=== PATIENT | male | born 1960 | race Hispanic/Latino ===

== ENCOUNTER 2019-01-22 20:34 | Inpatient (IN) | payer BC ==
--- NOTE | 2019-01-22 22:31 | ED PDOC ---
Lower Extremity Pain/Injury Time Seen by Provider: 01/22/19 21:43 Chief Complaint (Nursing): Lower Extremity Problem/Injury Chief Complaint (Provider): Lower Extremity Problem/Injury History Per: Patient History/Exam Limitations: no limitations Onset/Duration Of Symptoms: Days (x5 weeks) Current Symptoms Are (Timing): Still Present Additional Complaint(s): 58 year old male with a history of htn, dm, and high cholesterol presents to the ED with left great toe pain onset 12/16/18. Patient sustained a fracture and partial amputation of left great toe in November. At the time, he was treated at [facility] and followed up with Dr. Martino, podiatry, and was given a ntibiotics. When he followed up, there was concern for persistent infection so he was started on another course of antibiotics. Another repeat follow-up demonstrated worsening infection, prompting ED visit for further evaluation and possible admission. Patient denies any fever, chills or body aches. He had some mild diarrhea which may be caused by the antibiotics. PMD: in [place] Past Medical History Reviewed: Historical Data, Nursing Documentation, Vital Signs Vital Signs: Last Vital Signs Temp 98.1 F 01/22/19 21:11 Pulse 92 H 01/22/19 21:11 Resp 16 01/22/19 21:11 BP 136/83 01/22/19 21:11 Pulse Ox 97 01/22/19 21:11 - Medical History PMH: Diabetes, HTN, Hypercholesterolemia - Surgical History Other surgeries: cataract surgery - Family History Family History: States: No Known Family Hx - Social History Current smoker - smoking cessation education provided: No Ex-Smoker (has not smoked in the last 12 months): No - Allergies Allergies/Adverse Reactions: Allergies Allergy/AdvReac Type Severity Reaction Status Date / Time Penicillins Allergy RASH Verified 01/22/19 21:11 Review of Systems ROS Statement: Except As Marked, All Systems Reviewed And Found Negative Constitutional: Negative for: Fever, Chills Gastrointestinal: Positive for: Other (left great toe pain) Physical Exam - Reviewed Nursing Documentation Reviewed: Yes Vital Signs Reviewed: Yes - Physical Exam Appears: Positive for: Non-toxic, No Acute Distress Head Exam: Positive for: ATRAUMATIC, NORMOCEPHALIC Skin: Positive for: Warm, Dry Eye Exam: Positive for: EOMI, PERRL ENT: Negative for: Pharyngeal Erythema, Tonsillar Exudate Neck: Positive for: Painless ROM, Supple Cardiovascular/Chest: Positive for: Regular Rate, Rhythm. Negative for: Murmur Respiratory: Positive for: Normal Breath Sounds. Negative for: Respiratory Distress Gastrointestinal/Abdominal: Positive for: Soft. Negative for: Tenderness Back: Positive for: Normal Inspection. Negative for: Muscle Spasm Extremity: Positive for: Other (toe exam deferred to violin restorer who was at beside on arrival ) Lymphatic: Negative for: Adenopathy Neurologic/Psych: Positive for: Alert. Negative for: Motor/Sensory Deficits - Laboratory Results Result Diagrams: 01/22/19 22:45 01/22/19 22:45 - ECG O2 Sat by Pulse Oximetry: 97 (RA) Pulse Ox Interpretation: Normal Medical Decision Making Medical Decision Making: Time: 2156 Impression: left great toe with fracture and persistent infection Plan: --Type and screen --VBG --EKG --CMP --CBC --ESR --PTT --PT/INR --CXR --Blood culture --Glucose --left foot XR --Patient to be hospitalized for IV antibiotcs. Case discussed with Dr. Titus, medical service, for admission --- Scribe Attestation: Documented by Mari Ray, acting as a scribe for Lupis Maria MD. Provider Scribe Attestation: All medical record entries made by the Scribe were at my direction and personally dictated by me. I have reviewed the chart and agree that the record accurately reflects my personal performance of the history, physical exam, medical decision making, and the department course for this patient. I have also personally directed, reviewed, and agree with the discharge instructions and disposition. Disposition - Clinical Impression Clinical Impression: Toe infection Counseled Patient/Family Regarding: Studies Performed, Diagnosis - Disposition Disposition Time: 22:00 Condition: FAIR - Pt Status Changed To: Hospital Disposition Of: Inpatient - Admit Certification Admit to Inpatient:: After my assessment, the patient will require hospitalization for at least two midnights. This is because of the severity of symptoms shown, intensity of services needed, and/or the medical risk in this patient being treated as an outpatient. - POA Present On Arrival: Falls Or Trauma
[2019-01-22 22:39] LABS: VENOUS BLOOD GAS BASE EXCESS -0.5 mmol/L (0.0-2.0); VENOUS BLOOD GAS PCO2 39 mmHg (40-60); VENOUS BLOOD GAS PO2 50 mm/Hg (30-55)
[2019-01-22] MEDS ORDERED: Vancomycin 1 g Inj ONE (22:52)
[2019-01-22 22:59] LABS: BASO # 0.1 K/uL (0.0-0.2); EOS # 0.2 K/uL (0.0-0.7); HEMOGLOBIN 15.9 g/dL (12.0-18.0); LYMPH # 1.3 K/uL (1.0-4.3); LYMPH % 22.4 % (20.0-40.0); MEAN CELL VOLUME 90.3 fl (80.0-94.0); MEAN CORPUSCULAR HEMOGLOBIN 30.4 pg (27.0-31.0); MEAN CORPUSCULAR HGB CONC 33.6 g/dL (33.0-37.0); MEAN PLATELET VOLUME 7.7 fl (7.2-11.7); MONO # 0.5 K/uL (0.0-0.8); MONO % 8.2 % (0.0-10.0); NEUT # 3.8 K/uL (1.8-7.0); NEUT % 65.4 % (50.0-75.0); NRBC % 0.2 % (0.0-0.0); RBC 5.23 Mil/uL (4.40-5.90); RED CELL DISTRIBUTION WIDTH 12.5 % (11.5-14.5); WHITE BLOOD COUNT 5.8 K/uL (4.8-10.8)
[2019-01-22 23:04] LABS: INR 1.1; PROTHROMBIN TIME 12.1 Seconds (9.8-13.1)
[2019-01-22 23:06] LABS: PARTIAL THROMBOPLASTIN TIME 36.6 Seconds (25.6-37.1)
[2019-01-22 23:18] LABS: ALB/GLOB RATIO 1.4 (1.0-2.1); ALBUMIN 4.5 g/dL (3.5-5.0); ALT/SGPT 70 U/L (21-72); AST/SGOT 35 U/L (17-59); BLOOD UREA NITROGEN 24 mg/dl (9-20); CALCIUM 9.7 mg/dL (8.4-10.2); GFR NON-AFRICAN AMERICAN > 60
[2019-01-23] MEDS ORDERED: Dextrose 5%/0.45% NS 1,000 ML IV SCH (06:15)
--- NOTE | 2019-01-23 06:33 | CP.PCM.CON ---
History of Present Illness - History of Present Illness History of Present Illness: Podiatry consult note for Dr. Martino, 58 y/o male patient with PMHx of Diabetes and HTN seen and evaluated in the ED with left great toe pain onset 12/16/18. Patient sustained a fracture and partial amputation of left great toe in November. At the time, he was treated at [facility] and followed up with Dr. Martino, podiatry, and was given antibiotics. When he followed up, there was concern for persistent infection so he was started on a nother course of antibiotics. Patient has an outpatient MRI completed and was sent to the ED by Dr. Martino for further evaluation and possible admission. Patient denies any fever, chills or body aches. He had some mild diarrhea which may be caused by the antibiotics. PMD: in [place] Review of Systems - Review of Systems All systems: reviewed and no additional remarkable complaints except Review of Systems: As per HPI Past Patient History - Past Medical History & Family History Past Medical History?: Yes - Past Social History Smoking Status: Never Smoked - CARDIAC Hx Cardiac Disorders: Yes Hx Hypercholesterolemia: Yes Hx Hypertension: Yes - PULMONARY Hx Respiratory Disorders: No - NEUROLOGICAL Hx Neurological Disorder: No - HEENT Hx HEENT Problems: Yes Other/Comment: eyeglasses - RENAL Hx Chronic Kidney Disease: No - ENDOCRINE/METABOLIC Hx Endocrine Disorders: Yes Hx Diabetes Mellitus Type 2: Yes - HEMATOLOGICAL/ONCOLOGICAL Hx Blood Disorders: No Hx AIDS: No Hx Human Immunodeficiency Virus (HIV): No - INTEGUMENTARY Hx Dermatological Problems: No - MUSCULOSKELETAL/RHEUMATOLOGICAL Hx Musculoskeletal Disorders: No Hx Falls: No - GASTROINTESTINAL Hx Gastrointestinal Disorders: No - GENITOURINARY/GYNECOLOGICAL Hx Genitourinary Disorders: No - PSYCHIATRIC Hx Psychophysiologic Disorder: No Hx Substance Use: No - SURGICAL HISTORY Hx Surgeries: Yes Hx Cataract Extraction: Yes Other/Comment: sgy to great toe - ANESTHESIA Hx Anesthesia: No Hx Anesthesia Reactions: No Meds Allergies/Adverse Reactions: Allergies Allergy/AdvReac Type Severity Reaction Status Date / Time Penicillins Allergy RASH Verified 01/22/19 21:11 - Medications Medications: Current Medications Vancomycin HCl 1 gm/ Sodium (Chloride) 250 mls @ 166.667 mls/hr IVPB Q12 [facility]; Protocol Dextrose/Sodium Chloride (Dextrose 5%/0.45% Ns 1000 Ml) 1,000 mls @ 40 mls/hr IV .Q24H [facility] Stop: 01/24/19 06:13 Last Admin: 01/23/19 06:26 Dose: 40 mls/hr Insulin Human Regular (Humulin R) 0 units SC ACHS [facility]; Protocol Lisinopril (Zestril) 20 mg PO DAILY [facility] Terazosin HCl (Hytrin) 1 mg PO DAILY [facility] Physical Exam - Constitutional Appears: Well, Non-toxic, No Acute Distress - Head Exam Head Exam: ATRAUMATIC, NORMOCEPHALIC - Extremities Exam Additional comments: Left Lower Extremity Exam VASC: DP and PT 1/4 palpable, CFT less than 3 seconds X 5, TG warm to warm within normal limits, edema noted to the left hallux NEURO: epicritic and protective sensations intact DERM: erythema, edema and mild duskiness noted of the left hallux, no open wounds, no nail noted, no clinical signs of infection, no malodor, no drainage ORTHO: minimal pain on palpation of the left hallux - Neurological Exam Neurological exam: Alert, Oriented x3 - Psychiatric Exam Psychiatric exam: Normal Affect, Normal Mood Results - Vital Signs Recent Vital Signs: Last Vital Signs Temp 97.3 F L 01/23/19 00:20 Pulse 81 01/23/19 00:20 Resp 19 01/23/19 00:20 BP 116/74 01/23/19 00:20 Pulse Ox 95 01/23/19 00:20 - Labs Result Diagrams: 01/22/19 22:45 01/22/19 22:45 Labs: Laboratory Results - last 24 hr 01/22/19 01/22/19 01/22/19 22:35 22:45 22:45 WBC 5.8 RBC 5.23 Hgb 15.9 Hct 47.2 MCV 90.3 MCH 30.4 MCHC 33.6 RDW 12.5 Plt Count 252 MPV 7.7 Neut % (Auto) 65.4 Lymph % (Auto) 22.4 [place] % (Auto) 8.2 Eos % (Auto) 3.0 Baso % (Auto) 1.0 Neut # (Auto) 3.8 Lymph # (Auto) 1.3 [place] # (Auto) 0.5 Eos # (Auto) 0.2 Baso # (Auto) 0.1 ESR 8 PT INR APTT pO2 50 VBG pH 7.40 VBG pCO2 39 L VBG HCO3 24.2 VBG Total CO2 25.4 VBG O2 Sat (Calc) 90.3 H VBG Base Excess -0.5 L VBG Potassium 3.7 Sodium 136.0 140 Chloride 105.0 100 Glucose 164 H Lactate 1.6 FiO2 21.0 Potassium 3.7 Carbon Dioxide 24 Anion Gap 20 BUN 24 H Creatinine 1.0 Est GFR ( Amer) > 60 Est GFR (Non-Af Amer) > 60 POC Glucose (mg/dL) Random Glucose 158 H Calcium 9.7 Total Bilirubin 0.5 AST 35 ALT 70 Alkaline Phosphatase 48 Total Protein 7.8 Albumin 4.5 Globulin 3.3 Albumin/Globulin Ratio 1.4 Venous Blood Potassium 3.7 Blood Type Antibody Screen BBK History Checked 01/22/19 01/22/19 01/22/19 22:45 22:45 23:23 WBC RBC Hgb Hct MCV MCH MCHC RDW Plt Count MPV Neut % (Auto) Lymph % (Auto) [place] % (Auto) Eos % (Auto) Baso % (Auto) Neut # (Auto) Lymph # (Auto) [place] # (Auto) Eos # (Auto) Baso # (Auto) ESR PT 12.1 INR 1.1 APTT 36.6 pO2 VBG pH VBG pCO2 VBG HCO3 VBG Total CO2 VBG O2 Sat (Calc) VBG Base Excess VBG Potassium Sodium Chloride Glucose Lactate FiO2 Potassium Carbon Dioxide Anion Gap BUN Creatinine Est GFR ( Amer) Est GFR (Non-Af Amer) POC Glucose (mg/dL) 168 H Random Glucose Calcium Total Bilirubin AST ALT Alkaline Phosphatase Total Protein Albumin Globulin Albumin/Globulin Ratio Venous Blood Potassium Blood Type A POSITIVE Antibody Screen Negative BBK History Checked No verified bt 01/23/19 06:15 WBC RBC Hgb Hct MCV MCH MCHC RDW Plt Count MPV Neut % (Auto) Lymph % (Auto) [place] % (Auto) Eos % (Auto) Baso % (Auto) Neut # (Auto) Lymph # (Auto) [place] # (Auto) Eos # (Auto) Baso # (Auto) ESR PT INR APTT pO2 VBG pH VBG pCO2 VBG HCO3 VBG Total CO2 VBG O2 Sat (Calc) VBG Base Excess VBG Potassium Sodium Chloride Glucose Lactate FiO2 Potassium Carbon Dioxide Anion Gap BUN Creatinine Est GFR ( Amer) Est GFR (Non-Af Amer) POC Glucose (mg/dL) 124 H Random Glucose Calcium Total Bilirubin AST ALT Alkaline Phosphatase Total Protein Albumin Globulin Albumin/Globulin Ratio Venous Blood Potassium Blood Type Antibody Screen BBK History Checked Assessment & Plan - Assessment and Plan (Free Text) Assessment: 58 y/o male patient seen and evaluated in the ED and admitted for IV Abx, along with possible bone biopsy of the left hallux distal phalanx Plan: Patient was seen and evaluated Plan was discussed with Dr. Martino Chart, labs and vital were reviewed- no WBC, afebrile ESR- 8 Left foot X-ray: destructive changes-osteomyelitis distal phalanx left great toe with surrounding soft tissue Outpatient MRI: neuro-arthropathy vs. osteomyelitis changes were noted Patient explained that he will be admitted for IV Abx Patient started on Vancomycin Ordered ID consult with Dr. Nogueira Patient plan was thoroughly discussed with Dr. Nogueira Patient was scheduled for bone biospy as a definitive way to determine if patient has osteomyelitis Patient wound was dressed with betadine, DSD Patient was to be NPO past midnight Patient and spouse demonstrated verbal understanding - Date & Time Date: 01/24/19 Time: 07:25
[2019-01-23] MEDS: Insulin Regular 100 units/ml SC SCH ×4 (08:13→21:30)
--- NOTE | 2019-01-23 08:37 | CP.PCM.HP ---
History of Present Illness - History of Present Illness History of Present Illness: 58 YR OLD MALE ADMITTED WITH L GREAT TOE INFECTION--SCHEDULED FOR PODIATRY SURGERY.HX OF TRAUMA WITH FRACTURE AND PERSISTENT INFECTION OF L GREAT TOE SINCE LATE NOVEMBER 2018.DENIES PAIN OR FEVER.HAS BEEN ON MULTIPLE ANTIBIOTICS TO NO A VAIL HX OF DM,HYPERTENSION AND HYPERLIPIDEMIA Present on Admission - Present on Admission Any Indicators Present on Admission: No Past Patient History - Past Medical History & Family History Past Medical History?: Yes - Past Social History Smoking Status: Never Smoked - CARDIAC Hx Cardiac Disorders: Yes Hx Hypercholesterolemia: Yes Hx Hypertension: Yes - PULMONARY Hx Respiratory Disorders: No - NEUROLOGICAL Hx Neurological Disorder: No - HEENT Hx HEENT Problems: Yes Other/Comment: eyeglasses - RENAL Hx Chronic Kidney Disease: No - ENDOCRINE/METABOLIC Hx Endocrine Disorders: Yes Hx Diabetes Mellitus Type 2: Yes - HEMATOLOGICAL/ONCOLOGICAL Hx Blood Disorders: No Hx AIDS: No Hx Human Immunodeficiency Virus (HIV): No - INTEGUMENTARY Hx Dermatological Problems: No - MUSCULOSKELETAL/RHEUMATOLOGICAL Hx Musculoskeletal Disorders: No Hx Falls: No - GASTROINTESTINAL Hx Gastrointestinal Disorders: No - GENITOURINARY/GYNECOLOGICAL Hx Genitourinary Disorders: No - PSYCHIATRIC Hx Psychophysiologic Disorder: No Hx Substance Use: No - SURGICAL HISTORY Hx Surgeries: Yes Hx Cataract Extraction: Yes Other/Comment: sgy to great toe - ANESTHESIA Hx Anesthesia: No Hx Anesthesia Reactions: No Meds Allergies/Adverse Reactions: Allergies Allergy/AdvReac Type Severity Reaction Status Date / Time Penicillins Allergy RASH Verified 01/22/19 21:11 Physical Exam - Constitutional Appears: Well - Head Exam Head Exam: ATRAUMATIC, NORMAL INSPECTION, NORMOCEPHALIC - Eye Exam Eye Exam: EOMI, Normal appearance, PERRL Pupil Exam: NORMAL ACCOMODATION, PERRL - ENT Exam ENT Exam: Mucous Membranes Moist, Normal Exam - Neck Exam Neck exam: Positive for: Normal Inspection - Respiratory Exam Respiratory Exam: Clear to Auscultation Bilateral, NORMAL BREATHING PATTERN - Cardiovascular Exam Cardiovascular Exam: REGULAR RHYTHM - GI/Abdominal Exam GI & Abdominal Exam: Normal Bowel Sounds, Soft. absent: Tenderness - Rectal Exam Rectal Exam: NORMAL INSPECTION - Extremities Exam Additional comments: L GREAT TOE REDNESS AND SWELLING - Back Exam Back exam: NORMAL INSPECTION - Neurological Exam Neurological exam: Alert, CN II-XII Intact, Normal Gait, Oriented x3, Reflexes Normal - Psychiatric Exam Psychiatric exam: Normal Affect, Normal Mood - Skin Skin Exam: Dry, Intact, Normal Color, Warm Results - Vital Signs Recent Vital Signs: Last Vital Signs Temp 97.6 F 01/23/19 08:10 Pulse 85 01/23/19 08:10 Resp 19 01/23/19 08:10 BP 111/69 01/23/19 08:10 Pulse Ox 95 01/23/19 08:10 - Labs Result Diagrams: 01/22/19 22:45 01/22/19 22:45 Labs: Laboratory Results - last 24 hr 01/22/19 01/22/19 01/22/19 22:35 22:45 22:45 WBC 5.8 RBC 5.23 Hgb 15.9 Hct 47.2 MCV 90.3 MCH 30.4 MCHC 33.6 RDW 12.5 Plt Count 252 MPV 7.7 Neut % (Auto) 65.4 Lymph % (Auto) 22.4 [place] % (Auto) 8.2 Eos % (Auto) 3.0 Baso % (Auto) 1.0 Neut # (Auto) 3.8 Lymph # (Auto) 1.3 [place] # (Auto) 0.5 Eos # (Auto) 0.2 Baso # (Auto) 0.1 ESR 8 PT INR APTT pO2 50 VBG pH 7.40 VBG pCO2 39 L VBG HCO3 24.2 VBG Total CO2 25.4 VBG O2 Sat (Calc) 90.3 H VBG Base Excess -0.5 L VBG Potassium 3.7 Sodium 136.0 140 Chloride 105.0 100 Glucose 164 H Lactate 1.6 FiO2 21.0 Potassium 3.7 Carbon Dioxide 24 Anion Gap 20 BUN 24 H Creatinine 1.0 Est GFR ( Amer) > 60 Est GFR (Non-Af Amer) > 60 POC Glucose (mg/dL) Random Glucose 158 H Calcium 9.7 Total Bilirubin 0.5 AST 35 ALT 70 Alkaline Phosphatase 48 Total Protein 7.8 Albumin 4.5 Globulin 3.3 Albumin/Globulin Ratio 1.4 Venous Blood Potassium 3.7 Blood Type Antibody Screen BBK History Checked 01/22/19 01/22/19 01/22/19 22:45 22:45 23:23 WBC RBC Hgb Hct MCV MCH MCHC RDW Plt Count MPV Neut % (Auto) Lymph % (Auto) [place] % (Auto) Eos % (Auto) Baso % (Auto) Neut # (Auto) Lymph # (Auto) [place] # (Auto) Eos # (Auto) Baso # (Auto) ESR PT 12.1 INR 1.1 APTT 36.6 pO2 VBG pH VBG pCO2 VBG HCO3 VBG Total CO2 VBG O2 Sat (Calc) VBG Base Excess VBG Potassium Sodium Chloride Glucose Lactate FiO2 Potassium Carbon Dioxide Anion Gap BUN Creatinine Est GFR ( Amer) Est GFR (Non-Af Amer) POC Glucose (mg/dL) 168 H Random Glucose Calcium Total Bilirubin AST ALT Alkaline Phosphatase Total Protein Albumin Globulin Albumin/Globulin Ratio Venous Blood Potassium Blood Type A POSITIVE Antibody Screen Negative BBK History Checked No verified bt 01/23/19 06:15 WBC RBC Hgb Hct MCV MCH MCHC RDW Plt Count MPV Neut % (Auto) Lymph % (Auto) [place] % (Auto) Eos % (Auto) Baso % (Auto) Neut # (Auto) Lymph # (Auto) [place] # (Auto) Eos # (Auto) Baso # (Auto) ESR PT INR APTT pO2 VBG pH VBG pCO2 VBG HCO3 VBG Total CO2 VBG O2 Sat (Calc) VBG Base Excess VBG Potassium Sodium Chloride Glucose Lactate FiO2 Potassium Carbon Dioxide Anion Gap BUN Creatinine Est GFR ( Amer) Est GFR (Non-Af Amer) POC Glucose (mg/dL) 124 H Random Glucose Calcium Total Bilirubin AST ALT Alkaline Phosphatase Total Protein Albumin Globulin Albumin/Globulin Ratio Venous Blood Potassium Blood Type Antibody Screen BBK History Checked Assessment & Plan - Assessment and Plan (Free Text) Assessment: CELLULITIS OF L GREAT TOE FRACTURE OF L GREAT TOE R/O OSTEOMYELITIS DM HTN HYPERLIPIDEMIA Plan: MEDICALLY CLEARED FOR SURGERI ID EVALUATION IV ANTIBIOTICS ANALGESICS FOR PAIN - Date & Time Date: 01/23/19 Time: 08:40
--- NOTE | 2019-01-23 09:14 | CP.PCM.PN ---
<Irena Ray - Last Filed: 01/23/19 14:42> Objective - Vital Signs/Intake and Output Vital Signs (last 24 hours): Temp Pulse Resp BP Pulse Ox 97.6 F 85 19 135/79 95 01/23/19 08:10 01/23/19 08:10 01/23/19 08:10 01/23/19 10:30 01/23/19 08:10 Intake and Output: 01/23/19 01/23/19 06:59 18:59 Intake Total 300 Balance 300 - Medications Medications: Current Medications Vancomycin HCl 1 gm/ Sodium (Chloride) 250 mls @ 166.667 mls/hr IVPB Q12 [facility]; Protocol Last Admin: 01/23/19 08:16 Dose: 166.667 mls/hr Dextrose/Sodium Chloride (Dextrose 5%/0.45% Ns 1000 Ml) 1,000 mls @ 40 mls/hr IV .Q24H [facility] Stop: 01/24/19 06:13 Last Admin: 01/23/19 06:26 Dose: 40 mls/hr Insulin Human Regular (Humulin R) 0 units SC ACHS [facility]; Protocol Last Admin: 01/23/19 13:08 Dose: Not Given Lisinopril (Zestril) 20 mg PO DAILY [facility] Last Admin: 01/23/19 10:30 Dose: 20 mg Terazosin HCl (Hytrin) 1 mg PO DAILY@2100 [facility] - Labs Labs: 01/22/19 22:45 01/22/19 22:45 PT 12.1 Seconds (9.8-13.1) 01/22/19 22:45 INR 1.1 01/22/19 22:45 APTT 36.6 Seconds (25.6-37.1) 01/22/19 22:45 Assessment and Plan - Assessment and Plan (Free Text) Plan: Patient seen s/p left hallux bone biopsy in the OR 2 separate left hallux fracture site bone biopsy taken Wound cultures taken and ordered Site dressed with betadine application and saline soaked gauze with kerlix CAM boot ordered; patient to ambulate in CAM boot as tolerated. f/u on left foot x-rays <Katei Barber - Last Filed: 01/24/19 07:28> Subjective - Date & Time of Evaluation Date of Evaluation: 01/24/19 Time of Evaluation: 07:25 - Subjective Subjective: Podiatry progress note for Dr. Martino, 58 y/o male patient was seen and evaluated at bedside. Patient aware his surgery is today at 1:00 PM for bone biopsy. Patient NPO was confirmed. Patient denies any pain or overnight events. Patient denies F/N/V/SOB/CP Objective - Vital Signs/Intake and Output Vital Signs (last 24 hours): Temp Pulse Resp BP Pulse Ox 97.6 F 85 19 111/69 95 01/23/19 08:10 01/23/19 08:10 01/23/19 08:10 01/23/19 08:10 01/23/19 08:10 - Medications Medications: Current Medications Vancomycin HCl 1 gm/ Sodium (Chloride) 250 mls @ 166.667 mls/hr IVPB Q12 [facility]; Protocol Last Admin: 01/23/19 08:16 Dose: 166.667 mls/hr Dextrose/Sodium Chloride (Dextrose 5%/0.45% Ns 1000 Ml) 1,000 mls @ 40 mls/hr IV .Q24H [facility] Stop: 01/24/19 06:13 Last Admin: 01/23/19 06:26 Dose: 40 mls/hr Insulin Human Regular (Humulin R) 0 units SC ACHS [facility]; Protocol Last Admin: 01/23/19 08:13 Dose: Not Given Lisinopril (Zestril) 20 mg PO DAILY [facility] Last Admin: 01/23/19 08:19 Dose: Not Given Terazosin HCl (Hytrin) 1 mg PO DAILY [facility] Last Admin: 01/23/19 08:18 Dose: Not Given - Labs Labs: 01/22/19 22:45 01/22/19 22:45 PT 12.1 Seconds (9.8-13.1) 01/22/19 22:45 INR 1.1 01/22/19 22:45 APTT 36.6 Seconds (25.6-37.1) 01/22/19 22:45 - Constitutional Appears: Well, Non-toxic, No Acute Distress - Head Exam Head Exam: ATRAUMATIC, NORMOCEPHALIC - Extremities Exam Additional comments: Left Lower Extremity Exam VASC: DP and PT 1/4 palpable, CFT less than 3 seconds X 5, TG warm to warm within normal limits, edema noted to the left hallux NEURO: epicritic and protective sensations intact DERM: erythema, edema and mild duskiness noted of the left hallux, no open wounds, no nail noted, no clinical signs of infection, no malodor, no drainage ORTHO: minimal pain on palpation of the left hallux - Neurological Exam Neurological Exam: Alert, Awake, Oriented x3 - Psychiatric Exam Psychiatric exam: Normal Affect, Normal Mood Assessment and Plan - Assessment and Plan (Free Text) Assessment: 58 y/o male patient seen and evaluated in the ED and admitted for IV Abx, along with possible bone biopsy of the left hallux distal phalanx Plan: Patient to continue IV ABx Pending Infectious disease plan based on OR pathology Patient to either receive PO Zyvox vs. IV Abx Ordered vascular consult for patient
[2019-01-23] MEDS ORDERED: VITS A AND D/WHITE PET/LANOLIN 113.4 APPLIC/113.4 G TUBE TP PRN (09:22)
--- NOTE | 2019-01-23 09:35 | RAD ---
Date of service: 01/22/2019 HISTORY: Preoperative examination COMPARISON: No prior. TECHNIQUE: Chest PA and lateral FINDINGS: LINES AND TUBES: None. LUNG AND PLEURA: The lungs are well inflated and clear. There are mild chronic changes in the lungs. No pleural effusion or pneumothorax. HEART AND MEDIASTINUM: The heart is not enlarged. No aortic atherosclerotic calcifications present. The hilar and mediastinal contours are within normal limits. SKELETAL STRUCTURES: The bony structures are within normal limits for the patient's age. VISUALIZED UPPER ABDOMEN: Normal. OTHER FINDINGS: None. IMPRESSION: No active pulmonary disease.
--- NOTE | 2019-01-23 10:50 | RAD ---
PROCEDURE: Radiographs of the left great toe. TECHNIQUE:: AP radiograph of the left foot, with oblique and lateral view of the left great toe. COMPARISON: None. FINDINGS: BONES: Destructive changes-osteomyelitis of the distal phalanx left great toe with surrounding soft tissue swelling. No evidence of definitive subcutaneous emphysema seen at this time JOINTS: Mild multi articular degenerative osteoarthritis. SOFT TISSUES: As above. OTHER FINDINGS: None. IMPRESSION: Destructive changes-osteomyelitis distal phalanx left great toe with surrounding soft tissue swelling
--- NOTE | 2019-01-23 11:51 | CARD ---
APPROVED REPORT Date of service: 01/22/2019 EKG Measurement Heart [id number] <Conclusion> Normal sinus rhythm Normal ECG
[2019-01-23] MEDS ORDERED: Bupivacaine 0.25% Inj(30mL) IJ ONE (12:45)
[2019-01-23] MEDS ORDERED: Lidocaine 1% Inj (20ml) IJ ONE (12:45)
[2019-01-23] MEDS ORDERED: Bupivacaine 0.5% Inj(30mL) ONE (12:58)
[2019-01-23] MEDS ORDERED: Lidocaine 2% Inj (20ml) ONE (12:58)
[2019-01-23] MEDS ORDERED: Propofol 10 mg/ml Inj (20 ML) ONE (13:04)
[2019-01-23] MEDS ORDERED: Lactated Ringer's 500 ML IV ONE (13:35)
[2019-01-23] MEDS ORDERED: Midazolam 2 MG/2 ML VIAL ONE ×2 (13:39→13:42)
[2019-01-23] MEDS ORDERED: Lactated Ringer's 1,000 ML IV ONE (14:20)
--- NOTE | 2019-01-23 14:27 | PCM.SURG1 ---
Surgeon's Initial Post Op Note - Surgeon's Notes Surgeon: Dr. Martino Key Carrier: Irena Ray PGY1, Siva Hunt PGY2 Type of Anesthesia: IV Sedation, Local Anesthesia Administered By: Dr. Mora Pre-Operative Diagnosis: open comminuted fracture of distal phalanx of left hallux and possible bone infection. Operative Findings: see dictation. materials: 3-0 prolene. injectibles: 20 cc of 1:1 mixture of .5% marcaine plain and 2% lidocaine plain. Post-Operative Diagnosis: same Operation Performed: surgical treatment of open fracture with bone biopsy and wound culture Specimen/Specimens Removed: bone biopsy of left hallux sent to pathology. wound cultures taken from left hallux Estimated Blood Loss: EBL {In ML}: 5 Blood Products Given: N/A Drains Used: No Drains Post-Op Condition: Good Date of Surgery/Procedure: 01/23/19 Time of Surgery/Procedure: 14:28
[2019-01-23] MEDS ORDERED: Oxycodone/Acetaminophen 5/325 mg Tab PO PRN ×2 (14:30)
[2019-01-23] MEDS ORDERED: HYDROmorphone 0.5 mg/0.5 ml ISec IVP PRN (14:31)
[2019-01-23] MEDS ORDERED: Lactated Ringer's 1,000 ML IV SCH (14:45)
[2019-01-23 17:17] VITALS: BMI 30.8
[2019-01-23] MEDS: Omega-3-Acid Ethyl Esters 1 GM Cap PO SCH (17:22)
--- NOTE | 2019-01-23 18:49 | CP.PCM.PN ---
Subjective - Date & Time of Evaluation Date of Evaluation: 01/23/19 Time of Evaluation: 18:40 - Subjective Subjective: I D NOTE PATIENT EXAMINED ,EMR REVIEWED HAVE ADDED AZACTAM TO COVERAGER PQTIENT WILL LIKELY NEED EXTENDED IV ANTIBIOTIC COVERAGE BUT WILL AWAIT SURGERY RESULTS HAVE ORDERED PROCALCITONIN LEVELS SIGNIFICANTLY SED RATE IS ONLY 8 WILL DISCUSS c PODIATRY Objective - Vital Signs/Intake and Output Vital Signs (last 24 hours): Temp Pulse Resp BP Pulse Ox 97.4 F L 81 18 121/77 97 01/23/19 17:45 01/23/19 17:45 01/23/19 17:45 01/23/19 17:45 01/23/19 17:45 Intake and Output: 01/23/19 01/23/19 06:59 18:59 Intake Total 400 Balance 400 - Medications Medications: Current Medications Acetaminophen (Tylenol 325mg Tab) 650 mg PO Q6 PRN PRN Reason: Pain, Mild (1-3) Aspirin (Ecotrin) 81 mg PO DAILY [facility] Atorvastatin Calcium (Lipitor) 20 mg PO DAILY [facility] Glyburide (Micronase) 5 mg PO BID [facility] Last Admin: 01/23/19 17:23 Dose: 5 mg Home Med (Tadalafil [Cialis]) 5 mg PO DAILY [facility] Vancomycin HCl 1 gm/ Sodium (Chloride) 250 mls @ 166.667 mls/hr IVPB Q12 [facility]; Protocol Last Admin: 01/23/19 08:16 Dose: 166.667 mls/hr Aztreonam 1 gm/ Sodium (Chloride) 100 mls @ 100 mls/hr IVPB Q12 [facility]; Protocol Insulin Human Regular (Humulin R) 0 units SC ACHS [facility]; Protocol Last Admin: 01/23/19 16:47 Dose: Not Given Lisinopril (Zestril) 20 mg PO DAILY [facility] Last Admin: 01/23/19 10:30 Dose: 20 mg Metformin HCl (Glucophage) 1,000 mg PO BIDWM [facility] Last Admin: 01/23/19 17:23 Dose: 1,000 mg Wnfkv-5-[id number] Ethyl Esters (Lovaza) 2 gm PO BID [facility] Last Admin: 01/23/19 17:22 Dose: 2 gm Oxycodone/Acetaminophen (Percocet 5/325 Mg Tab) 1 tab PO Q6 PRN PRN Reason: Pain, moderate (4-7) Stop: 01/26/19 14:31 Oxycodone/Acetaminophen (Percocet 5/325 Mg Tab) 2 tab PO Q6 PRN PRN Reason: Pain, severe (8-10) Stop: 01/26/19 14:31 Pregabalin (Lyrica) 50 mg PO TID [facility] Last Admin: 01/23/19 17:22 Dose: 50 mg Terazosin HCl (Hytrin) 1 mg PO DAILY@2100 [facility] - Labs Labs: 01/22/19 22:45 01/22/19 22:45 PT 12.1 Seconds (9.8-13.1) 01/22/19 22:45 INR 1.1 01/22/19 22:45 APTT 36.6 Seconds (25.6-37.1) 01/22/19 22:45
[2019-01-23] MEDS: Aztreonam 1 GM in Sodium Chloride 0.9% 100 ML IVPB SCH (21:29)
[2019-01-24] MEDS: Insulin Regular 100 units/ml SC SCH ×4 (06:55→21:21)
[2019-01-24] MEDS: Aztreonam 1 GM in Sodium Chloride 0.9% 100 ML IVPB SCH ×2 (08:38→20:07)
[2019-01-24] MEDS: Omega-3-Acid Ethyl Esters 1 GM Cap PO SCH ×2 (08:41→16:55)
[2019-01-24 08:52] LABS: BLOOD UREA NITROGEN 25 mg/dl (9-20); CALCIUM 8.9 mg/dL (8.4-10.2); GFR NON-AFRICAN AMERICAN > 60; HEMOGLOBIN 14.6 g/dL (12.0-18.0); MEAN CELL VOLUME 89.9 fl (80.0-94.0); MEAN CORPUSCULAR HEMOGLOBIN 30.5 pg (27.0-31.0); RBC 4.77 Mil/uL (4.40-5.90); RED CELL DISTRIBUTION WIDTH 12.2 % (11.5-14.5); WHITE BLOOD COUNT 6.3 K/uL (4.8-10.8)
[2019-01-24] MEDS ORDERED: Enoxaparin 40 mg Syringe SC SCH (09:00)
[2019-01-24] MEDS ORDERED: TADALAFIL 5 MG PO SCH (09:00)
--- NOTE | 2019-01-24 10:01 | RAD ---
Date of service: 01/23/2019 PROCEDURE: Left Foot Radiographs. HISTORY: s/p bone biopsy left hallux COMPARISON: 01/22/2019. FINDINGS: BONES: Status post biopsy 1st distal phalanx. Transverse fracture/surgical defect proximal 1st distal phalanx. There are mildly displaced bony fragments. Incidentally noted plantar calcaneal spur. JOINTS: Normal. SOFT TISSUES: Normal. OTHER FINDINGS: None. IMPRESSION: Status post biopsy 1st distal phalanx. Destructive changes of 1st distal phalanx as noted previously.
--- NOTE | 2019-01-24 10:12 | CON ---
DATE: 01/23/2019 INFECTIOUS DISEASE CONSULTATION HISTORY OF PRESENT ILLNESS: The patient is a 58-year-old male who is admitted with great toe infection. He received podiatric surgery earlier in the day. The process began when he injured himself apparently tripping on a rug and had an open laceration and a fracture. This was initially treated in the emergency room and was placed on oral Keflex. The patient subsequently received also Cipro and Flagyl. As the wound did not get worse and he was seen by [facility] in [place] with Dr. Martino, it was decided to open up the foot and get a bone biopsy and also get a bone culture as the MRI was not diagnostic of osteomyelitis. The patient has a history also of diabetes, hypertension, and hyperlipidemia, and apparently has severe peripheral neuropathy. LABORATORY DATA: White count is 5.8, hemoglobin of 15.9, has 65 polys and 22 lymphs and of significance that he has quite low sed rate of only 8. Blood sugars elevated. GFR is greater than 60. Creatinine is 1. Liver function tests are within normal limits. PHYSICAL EXAMINATION: HEENT: Within normal limits. NECK: Supple. LUNGS: Clear. HEART: Regular sinus rhythm. ABDOMEN: Soft. Positive bowel sounds. EXTREMITIES: Toe is bandaged, status post immediately postop. IMPRESSION: Obviously rule out osteomyelitis. Initially, I was thinking that considering the amount of time involved with lack of improvement of this toe, we would definitely treat with four to six weeks of intravenous antibiotics. Based on some of the laboratory findings, we might consider less aggressive form of treatment, but we will await the operative results. In the present time, I agree with vancomycin and have added Azactam for gram-negative coverage. Tru Nogueira MD
--- NOTE | 2019-01-24 11:45 | CP.PCM.CON ---
History of Present Illness - History of Present Illness History of Present Illness: Consultation for evaluation of PVOD HPI: 58-year-old male with past medical significant for hypertension diabetes hyperlipidemia being consulted for evaluation of peripheral vascular occlusive disease patient apparently presented to the emergency room on December 17 after sustaining a laceration to his great toe he was apparently in [place] at [facility] where he underwent sutured suturing of the wound and was subsequently discharged home he was followed by Dr. shannon with the wound was not healing and there was concern for possible vasculitis for which he underwent a bone biopsy postoperatively has to turn blue and there was concern for underlying vascular disease for which he has been consulted for further evaluation and treatment. Review of Systems - Review of Systems Systems not reviewed;Unavailable: Acuity of Condition - Constitutional Constitutional: As Per HPI - EENT Eyes: As Per HPI Ears: As Per HPI Nose/Mouth/Throat: As Per HPI - Cardiovascular Cardiovascular: As Per HPI - Respiratory Respiratory: As Per HPI - Gastrointestinal Gastrointestinal: As Per HPI - Genitourinary Genitourinary: As Per HPI - Reproductive: Male Reproductive:Male: As Per HPI - Musculoskeletal Musculoskeletal: As Per HPI - Integumentary Integumentary: As Per HPI - Neurological Neurological: As Per HPI - Psychiatric Psychiatric: As Per HPI - Endocrine Endocrine: As Per HPI - Hematologic/Lymphatic Hematologic: As Per HPI Past Patient History - Past Medical History & Family History Past Medical History?: Yes - Past Social History Smoking Status: Never Smoked - CARDIAC Hx Cardiac Disorders: Yes Hx Hypercholesterolemia: Yes Hx Hypertension: Yes - PULMONARY Hx Respiratory Disorders: No - NEUROLOGICAL Hx Neurological Disorder: No - HEENT Hx HEENT Problems: Yes Other/Comment: eyeglasses - RENAL Hx Chronic Kidney Disease: No - ENDOCRINE/METABOLIC Hx Endocrine Disorders: Yes Hx Diabetes Mellitus Type 2: Yes - HEMATOLOGICAL/ONCOLOGICAL Hx Blood Disorders: No Hx AIDS: No Hx Human Immunodeficiency Virus (HIV): No - INTEGUMENTARY Hx Dermatological Problems: No - MUSCULOSKELETAL/RHEUMATOLOGICAL Hx Musculoskeletal Disorders: No Hx Falls: No - GASTROINTESTINAL Hx Gastrointestinal Disorders: No - GENITOURINARY/GYNECOLOGICAL Hx Genitourinary Disorders: No - PSYCHIATRIC Hx Psychophysiologic Disorder: No Hx Substance Use: No - SURGICAL HISTORY Hx Surgeries: Yes Hx Cataract Extraction: Yes Other/Comment: sgy to great toe - ANESTHESIA Hx Anesthesia: No Hx Anesthesia Reactions: No Meds Allergies/Adverse Reactions: Allergies Allergy/AdvReac Type Severity Reaction Status Date / Time Penicillins Allergy RASH Verified 01/22/19 21:11 - Medications Medications: Current Medications Acetaminophen (Tylenol 325mg Tab) 650 mg PO Q6 PRN PRN Reason: Pain, Mild (1-3) Last Admin: 01/23/19 21:28 Dose: 650 mg Aspirin (Ecotrin) 81 mg PO DAILY [facility] Last Admin: 01/24/19 08:42 Dose: 81 mg Atorvastatin Calcium (Lipitor) 20 mg PO DAILY [facility] Last Admin: 01/24/19 08:42 Dose: 20 mg Glyburide (Micronase) 5 mg PO BID [facility] Last Admin: 01/24/19 08:42 Dose: 5 mg Home Med (Tadalafil [Cialis]) 5 mg PO DAILY [facility] Vancomycin HCl 1 gm/ Sodium (Chloride) 250 mls @ 166.667 mls/hr IVPB Q12 [facility]; Protocol Last Admin: 01/24/19 08:39 Dose: 166.667 mls/hr Aztreonam 1 gm/ Sodium (Chloride) 100 mls @ 100 mls/hr IVPB Q12 [facility]; Protocol Last Admin: 01/24/19 08:38 Dose: 100 mls/hr Insulin Human Regular (Humulin R) 0 units SC ACHS [facility]; Protocol Last Admin: 01/24/19 06:55 Dose: Not Given Lisinopril (Zestril) 20 mg PO DAILY [facility] Last Admin: 01/24/19 08:41 Dose: 20 mg Metformin HCl (Glucophage) 1,000 mg PO BIDWM [facility] Last Admin: 01/24/19 08:41 Dose: 1,000 mg [id number]-8-[id number] Ethyl Esters (Lovaza) 2 gm PO BID [facility] Last Admin: 01/24/19 08:41 Dose: 2 gm Oxycodone/Acetaminophen (Percocet 5/325 Mg Tab) 1 tab PO Q6 PRN PRN Reason: Pain, moderate (4-7) Stop: 01/26/19 14:31 Oxycodone/Acetaminophen (Percocet 5/325 Mg Tab) 2 tab PO Q6 PRN PRN Reason: Pain, severe (8-10) Stop: 01/26/19 14:31 Pregabalin (Lyrica) 50 mg PO TID [facility] Last Admin: 01/24/19 08:40 Dose: 50 mg Terazosin HCl (Hytrin) 1 mg PO DAILY@2100 [facility] Last Admin: 01/23/19 21:28 Dose: 1 mg Physical Exam - Constitutional Appears: Well - Head Exam Head Exam: ATRAUMATIC, NORMAL INSPECTION, NORMOCEPHALIC - Eye Exam Eye Exam: EOMI, Normal appearance, PERRL Pupil Exam: NORMAL ACCOMODATION, PERRL - ENT Exam ENT Exam: Mucous Membranes Moist, Normal Exam - Neck Exam Neck exam: Positive for: Normal Inspection - Respiratory Exam Respiratory Exam: Clear to Auscultation Bilateral, NORMAL BREATHING PATTERN - Cardiovascular Exam Cardiovascular Exam: REGULAR RHYTHM - GI/Abdominal Exam GI & Abdominal Exam: Normal Bowel Sounds, Soft. absent: Tenderness - Extremities Exam Extremities exam: Positive for: normal inspection - Back Exam Back exam: NORMAL INSPECTION - Neurological Exam Neurological exam: Alert, CN II-XII Intact, Normal Gait, Oriented x3, Reflexes Normal - Psychiatric Exam Psychiatric exam: Normal Affect, Normal Mood - Skin Skin Exam: Dry, Intact, Normal Color, Warm Results - Vital Signs Recent Vital Signs: Last Vital Signs Temp 97.5 F L 01/24/19 07:51 Pulse 82 01/24/19 07:51 Resp 20 01/24/19 07:51 BP 105/60 01/24/19 07:51 Pulse Ox 98 01/24/19 07:51 - Labs Result Diagrams: 01/24/19 08:10 01/24/19 08:10 Labs: Laboratory Results - last 24 hr 01/22/19 01/23/19 01/23/19 22:02 14:17 14:32 WBC RBC Hgb Hct MCV MCH MCHC RDW Plt Count Sodium Potassium Chloride Carbon Dioxide Anion Gap BUN Creatinine Est GFR ( Amer) Est GFR (Non-Af Amer) POC Glucose (mg/dL) 147 H Random Glucose Hemoglobin A1c 8.7 H Calcium C-Reactive Protein < 5.00 Vancomycin Trough 01/23/19 01/23/19 01/24/19 15:59 21:27 05:08 WBC RBC Hgb Hct MCV MCH MCHC RDW Plt Count Sodium Potassium Chloride Carbon Dioxide Anion Gap BUN Creatinine Est GFR ( Amer) Est GFR (Non-Af Amer) POC Glucose (mg/dL) 105 178 H 122 H Random Glucose Hemoglobin A1c Calcium C-Reactive Protein Vancomycin Trough 01/24/19 01/24/19 01/24/19 08:10 08:10 08:10 WBC 6.3 RBC 4.77 Hgb 14.6 Hct 42.8 MCV 89.9 MCH 30.5 MCHC 34.0 RDW 12.2 Plt Count 227 Sodium 137 Potassium 4.2 Chloride 99 Carbon Dioxide 28 Anion Gap 14 BUN 25 H Creatinine 1.1 Est GFR ( Amer) > 60 Est GFR (Non-Af Amer) > 60 POC Glucose (mg/dL) Random Glucose 160 H Hemoglobin A1c Calcium 8.9 C-Reactive Protein Vancomycin Trough 7.8 01/24/19 10:33 WBC RBC Hgb Hct MCV MCH MCHC RDW Plt Count Sodium Potassium Chloride Carbon Dioxide Anion Gap BUN Creatinine Est GFR ( Amer) Est GFR (Non-Af Amer) POC Glucose (mg/dL) 299 H Random Glucose Hemoglobin A1c Calcium C-Reactive Protein Vancomycin Trough Assessment & Plan (1) PVD (peripheral vascular disease) Assessment and Plan: good pedal pulses etiology 2' to microvascular disease medical management with asa, bb, arb, statins Status: Acute (2) Toe infection Status: Acute
--- NOTE | 2019-01-24 12:23 | CP.PCM.PN ---
Subjective - Date & Time of Evaluation Date of Evaluation: 01/24/19 Time of Evaluation: 12:23 - Subjective Subjective: DENIES FOOT PAIN FAIR DORSALIS PEDIS PULSES VASCULAR CONSULT APPRECIATED ID AND PODIATRY CARE APPRECIATED BONE BX AND CULTURE RESULTS PENDING WIOLL CONTINUE IV ANTIBIOTIC RX FOR OSTEOMYELITIS Objective - Vital Signs/Intake and Output Vital Signs (last 24 hours): Temp Pulse Resp BP Pulse Ox 97.5 F L 82 20 105/60 98 01/24/19 07:51 01/24/19 07:51 01/24/19 07:51 01/24/19 07:51 01/24/19 07:51 - Medications Medications: Current Medications Acetaminophen (Tylenol 325mg Tab) 650 mg PO Q6 PRN PRN Reason: Pain, Mild (1-3) Last Admin: 01/23/19 21:28 Dose: 650 mg Aspirin (Ecotrin) 81 mg PO DAILY [facility] Last Admin: 01/24/19 08:42 Dose: 81 mg Atorvastatin Calcium (Lipitor) 20 mg PO DAILY [facility] Last Admin: 01/24/19 08:42 Dose: 20 mg Glyburide (Micronase) 5 mg PO BID [facility] Last Admin: 01/24/19 08:42 Dose: 5 mg Home Med (Tadalafil [Cialis]) 5 mg PO DAILY [facility] Vancomycin HCl 1 gm/ Sodium (Chloride) 250 mls @ 166.667 mls/hr IVPB Q12 [facility]; Protocol Last Admin: 01/24/19 08:39 Dose: 166.667 mls/hr Aztreonam 1 gm/ Sodium (Chloride) 100 mls @ 100 mls/hr IVPB Q12 [facility]; Protocol Last Admin: 01/24/19 08:38 Dose: 100 mls/hr Insulin Human Regular (Humulin R) 0 units SC ACHS [facility]; Protocol Last Admin: 01/24/19 06:55 Dose: Not Given Lisinopril (Zestril) 20 mg PO DAILY [facility] Last Admin: 01/24/19 08:41 Dose: 20 mg Metformin HCl (Glucophage) 1,000 mg PO BIDWM [facility] Last Admin: 01/24/19 08:41 Dose: 1,000 mg Hlnqa-0-Ogqu Ethyl Esters (Lovaza) 2 gm PO BID [facility] Last Admin: 01/24/19 08:41 Dose: 2 gm Oxycodone/Acetaminophen (Percocet 5/325 Mg Tab) 1 tab PO Q6 PRN PRN Reason: Pain, moderate (4-7) Stop: 01/26/19 14:31 Oxycodone/Acetaminophen (Percocet 5/325 Mg Tab) 2 tab PO Q6 PRN PRN Reason: Pain, severe (8-10) Stop: 01/26/19 14:31 Pregabalin (Lyrica) 50 mg PO TID [facility] Last Admin: 01/24/19 08:40 Dose: 50 mg Terazosin HCl (Hytrin) 1 mg PO DAILY@2100 [facility] Last Admin: 01/23/19 21:28 Dose: 1 mg - Labs Labs: 01/24/19 08:10 01/24/19 08:10 PT 12.1 Seconds (9.8-13.1) 01/22/19 22:45 INR 1.1 01/22/19 22:45 APTT 36.6 Seconds (25.6-37.1) 01/22/19 22:45
--- NOTE | 2019-01-24 13:43 | CP.PCM.PN ---
Subjective - Date & Time of Evaluation Date of Evaluation: 01/24/19 Time of Evaluation: 13:35 - Subjective Subjective: I D NOTE HAVE CONTINUED TO CONSIDER RX AND AFTER DISCUSSION C HAVE OPTED FOR [facility] RX(4 TO 6 WEEKLS VANCOMYCIN TROUGH IS 7.B PROCALCITONIN IS <0.05 CONTINUE VANCOMYCIN /AZACTAM WILL CONSIDER DAPTOMYCIN Objective - Vital Signs/Intake and Output Vital Signs (last 24 hours): Temp Pulse Resp BP Pulse Ox 97.5 F L 82 20 105/60 98 01/24/19 07:51 01/24/19 07:51 01/24/19 07:51 01/24/19 07:51 01/24/19 07:51 - Medications Medications: Current Medications Acetaminophen (Tylenol 325mg Tab) 650 mg PO Q6 PRN PRN Reason: Pain, Mild (1-3) Last Admin: 01/23/19 21:28 Dose: 650 mg Aspirin (Ecotrin) 81 mg PO DAILY [facility] Last Admin: 01/24/19 08:42 Dose: 81 mg Atorvastatin Calcium (Lipitor) 20 mg PO DAILY [facility] Last Admin: 01/24/19 08:42 Dose: 20 mg Glyburide (Micronase) 5 mg PO BID [facility] Last Admin: 01/24/19 08:42 Dose: 5 mg Home Med (Tadalafil [Cialis]) 5 mg PO DAILY [facility] Vancomycin HCl 1 gm/ Sodium (Chloride) 250 mls @ 166.667 mls/hr IVPB Q12 [facility]; Protocol Last Admin: 01/24/19 08:39 Dose: 166.667 mls/hr Aztreonam 1 gm/ Sodium (Chloride) 100 mls @ 100 mls/hr IVPB Q12 [facility]; Protocol Last Admin: 01/24/19 08:38 Dose: 100 mls/hr Insulin Human Regular (Humulin R) 0 units SC ACHS [facility]; Protocol Last Admin: 01/24/19 12:38 Dose: 2 units Lisinopril (Zestril) 20 mg PO DAILY [facility] Last Admin: 01/24/19 08:41 Dose: 20 mg Metformin HCl (Glucophage) 1,000 mg PO BIDWM [facility] Last Admin: 01/24/19 08:41 Dose: 1,000 mg Nfbzi-4-Mrvj Ethyl Esters (Lovaza) 2 gm PO BID [facility] Last Admin: 01/24/19 08:41 Dose: 2 gm Oxycodone/Acetaminophen (Percocet 5/325 Mg Tab) 1 tab PO Q6 PRN PRN Reason: Pain, moderate (4-7) Stop: 01/26/19 14:31 Oxycodone/Acetaminophen (Percocet 5/325 Mg Tab) 2 tab PO Q6 PRN PRN Reason: Pain, severe (8-10) Stop: 01/26/19 14:31 Pregabalin (Lyrica) 50 mg PO TID [facility] Last Admin: 01/24/19 12:32 Dose: 50 mg Terazosin HCl (Hytrin) 1 mg PO DAILY@2100 [facility] Last Admin: 01/23/19 21:28 Dose: 1 mg - Labs Labs: 01/24/19 08:10 01/24/19 08:10 PT 12.1 Seconds (9.8-13.1) 01/22/19 22:45 INR 1.1 01/22/19 22:45 APTT 36.6 Seconds (25.6-37.1) 01/22/19 22:45
--- NOTE | 2019-01-24 16:58 | CP.PCM.PN ---
Subjective - Date & Time of Evaluation Date of Evaluation: 01/27/19 Time of Evaluation: 07:41 - Subjective Subjective: Podiatry progress note for Dr. Martino, 58 y/o male patient was seen and evaluated at bedside. Patient POD1 left hallux bone biopsy. Patient denies any pain or overnight events. Patient denies F/N/V/SOB/CP Objective - Vital Signs/Intake and Output Vital Signs (last 24 hours): Temp Pulse Resp BP Pulse Ox 98.3 F 83 20 112/67 97 01/24/19 16:08 01/24/19 16:08 01/24/19 16:08 01/24/19 16:08 01/24/19 16:08 - Medications Medications: Current Medications Acetaminophen (Tylenol 325mg Tab) 650 mg PO Q6 PRN PRN Reason: Pain, Mild (1-3) Last Admin: 01/23/19 21:28 Dose: 650 mg Aspirin (Ecotrin) 81 mg PO DAILY [facility] Last Admin: 01/24/19 08:42 Dose: 81 mg Atorvastatin Calcium (Lipitor) 20 mg PO DAILY [facility] Last Admin: 01/24/19 08:42 Dose: 20 mg Glyburide (Micronase) 5 mg PO BID [facility] Last Admin: 01/24/19 16:55 Dose: 5 mg Home Med (Tadalafil [Cialis]) 5 mg PO DAILY [facility] Vancomycin HCl 1 gm/ Sodium (Chloride) 250 mls @ 166.667 mls/hr IVPB Q12 [facility]; Protocol Last Admin: 01/24/19 08:39 Dose: 166.667 mls/hr Aztreonam 1 gm/ Sodium (Chloride) 100 mls @ 100 mls/hr IVPB Q12 [facility]; Protocol Last Admin: 01/24/19 08:38 Dose: 100 mls/hr Insulin Human Regular (Humulin R) 0 units SC ACHS [facility]; Protocol Last Admin: 01/24/19 16:51 Dose: Not Given Lisinopril (Zestril) 20 mg PO DAILY [facility] Last Admin: 01/24/19 08:41 Dose: 20 mg Metformin HCl (Glucophage) 1,000 mg PO BIDWM [facility] Last Admin: 01/24/19 16:55 Dose: 1,000 mg Fnupi-6-Hoks Ethyl Esters (Lovaza) 2 gm PO BID [facility] Last Admin: 01/24/19 16:55 Dose: 2 gm Oxycodone/Acetaminophen (Percocet 5/325 Mg Tab) 1 tab PO Q6 PRN PRN Reason: Pain, moderate (4-7) Stop: 01/26/19 14:31 Oxycodone/Acetaminophen (Percocet 5/325 Mg Tab) 2 tab PO Q6 PRN PRN Reason: Pain, severe (8-10) Stop: 01/26/19 14:31 Pregabalin (Lyrica) 50 mg PO TID [facility] Last Admin: 01/24/19 16:55 Dose: 50 mg Terazosin HCl (Hytrin) 1 mg PO DAILY@2100 [facility] Last Admin: 01/23/19 21:28 Dose: 1 mg - Labs Labs: 01/24/19 08:10 01/24/19 08:10 PT 12.1 Seconds (9.8-13.1) 01/22/19 22:45 INR 1.1 01/22/19 22:45 APTT 36.6 Seconds (25.6-37.1) 01/22/19 22:45 - Constitutional Appears: Well, Non-toxic, No Acute Distress - Head Exam Head Exam: ATRAUMATIC, NORMOCEPHALIC - ENT Exam ENT Exam: Mucous Membranes Moist - Extremities Exam Additional comments: eft Lower Extremity Exam VASC: DP and PT 1/4 palpable, CFT less than 3 seconds X 5, TG warm to warm within normal limits, edema noted to the left hallux NEURO: epicritic and protective sensations intact DERM: well-coapted sutures noted dorsally, no maceration, no wound dehiscence, no open wounds, no clinical signs of infection, no malodor, no drainage ORTHO: minimal pain on palpation of the left hallux - Neurological Exam Neurological Exam: Alert, Awake, Oriented x3 - Psychiatric Exam Psychiatric exam: Normal Affect, Normal Mood Assessment and Plan - Assessment and Plan (Free Text) Assessment: 58 y/o male patient seen and evaluated in the ED and admitted for IV Abx, POD 1 bone biospy Plan: Patient seen and evaluated at bedside Discussed with Dr. Martino in detail ID consult, reccs appreciated Continue IV abx, Aztreonam L hallux wound cultures: no growth, preliminary Blood culture: no growth after 72 hrs Local wound care to L lower extremity: DSD Bone biopsy results pending: review results Sunday Vasc consult, reccs appreciated WBAT with CAM boot to L lower extremity Will continue to follow
[2019-01-25] MEDS: Insulin Regular 100 units/ml SC SCH ×4 (08:54→22:00)
[2019-01-25] MEDS: Aztreonam 1 GM in Sodium Chloride 0.9% 100 ML IVPB SCH ×2 (08:54→20:08)
[2019-01-25] MEDS: Omega-3-Acid Ethyl Esters 1 GM Cap PO SCH ×2 (08:55→17:43)
--- NOTE | 2019-01-25 11:42 | CP.PCM.PN ---
Subjective - Date & Time of Evaluation Date of Evaluation: 01/25/19 Time of Evaluation: 11:44 - Subjective Subjective: DENIES L FOOT PAIN S/P SURGICAL DEBRIDEMENT OF L GREAT TOE Objective - Vital Signs/Intake and Output Vital Signs (last 24 hours): Temp Pulse Resp BP Pulse Ox 97.5 F L 93 H 20 139/77 97 01/25/19 08:25 01/25/19 08:56 01/25/19 08:25 01/25/19 08:56 01/25/19 08:25 - Medications Medications: Current Medications Acetaminophen (Tylenol 325mg Tab) 650 mg PO Q6 PRN PRN Reason: Pain, Mild (1-3) Last Admin: 01/24/19 21:11 Dose: 650 mg Aspirin (Ecotrin) 81 mg PO DAILY [facility] Last Admin: 01/25/19 08:55 Dose: 81 mg Atorvastatin Calcium (Lipitor) 20 mg PO DAILY [facility] Last Admin: 01/25/19 08:55 Dose: 20 mg Glyburide (Micronase) 5 mg PO BID [facility] Last Admin: 01/25/19 08:56 Dose: 5 mg Home Med (Tadalafil [Cialis]) 5 mg PO DAILY [facility] Vancomycin HCl 1 gm/ Sodium (Chloride) 250 mls @ 166.667 mls/hr IVPB Q12 [facility]; Protocol Last Admin: 01/25/19 10:03 Dose: 166.667 mls/hr Aztreonam 1 gm/ Sodium (Chloride) 100 mls @ 100 mls/hr IVPB Q12 [facility]; Protocol Last Admin: 01/25/19 08:54 Dose: 100 mls/hr Insulin Human Regular (Humulin R) 0 units SC ACHS [facility]; Protocol Last Admin: 01/25/19 08:54 Dose: Not Given Lisinopril (Zestril) 20 mg PO DAILY [facility] Last Admin: 01/25/19 08:56 Dose: 20 mg Metformin HCl (Glucophage) 1,000 mg PO BIDWM [facility] Last Admin: 01/25/19 08:55 Dose: 1,000 mg [id number]-[id number] Ethyl Esters (Lovaza) 2 gm PO BID [facility] Last Admin: 01/25/19 08:55 Dose: 2 gm Oxycodone/Acetaminophen (Percocet 5/325 Mg Tab) 1 tab PO Q6 PRN PRN Reason: Pain, moderate (4-7) Stop: 01/26/19 14:31 Oxycodone/Acetaminophen (Percocet 5/325 Mg Tab) 2 tab PO Q6 PRN PRN Reason: Pain, severe (8-10) Stop: 01/26/19 14:31 Pregabalin (Lyrica) 50 mg PO TID [facility] Last Admin: 01/25/19 09:01 Dose: 50 mg Terazosin HCl (Hytrin) 1 mg PO DAILY@2100 [facility] Last Admin: 01/24/19 21:02 Dose: 1 mg - Labs Labs: 01/24/19 08:10 01/24/19 08:10 PT 12.1 Seconds (9.8-13.1) 01/22/19 22:45 INR 1.1 01/22/19 22:45 APTT 36.6 Seconds (25.6-37.1) 01/22/19 22:45 - Constitutional Appears: No Acute Distress - Head Exam Head Exam: ATRAUMATIC, NORMAL INSPECTION, NORMOCEPHALIC - Eye Exam Eye Exam: EOMI, Normal appearance, PERRL Pupil Exam: NORMAL ACCOMODATION, PERRL - ENT Exam ENT Exam: Mucous Membranes Moist, Normal Exam - Neck Exam Neck Exam: Full ROM, Normal Inspection. absent: Lymphadenopathy - Respiratory Exam Respiratory Exam: Clear to Ausculation Bilateral, NORMAL BREATHING PATTERN - Cardiovascular Exam Cardiovascular Exam: REGULAR RHYTHM, +S1, +S2. absent: Murmur - GI/Abdominal Exam GI & Abdominal Exam: Soft, Normal Bowel Sounds. absent: Tenderness - Rectal Exam Rectal Exam: NORMAL INSPECTION - Extremities Exam Extremities Exam: Full ROM, Normal Capillary Refill. absent: Joint Swelling, Pedal Edema Additional comments: GOOD DORSALIS PEDIS PULSES L GREAT TOE HEALING WELL LESS REDNESS - Back Exam Back Exam: NORMAL INSPECTION - Neurological Exam Neurological Exam: Alert, Awake, CN II-XII Intact, Normal Gait, Oriented x3 - Psychiatric Exam Psychiatric exam: Normal Affect, Normal Mood - Skin Skin Exam: Dry, Intact, Normal Color, Warm Assessment and Plan - Assessment and Plan (Free Text) Assessment: OSTEOMYELITIS OF L GREAT TOE DM HTN Plan: CONTINUE CURRENT RX WILL PROBABLY D/C ON IV STEROIDS NEXT WEEK
[2019-01-25] MEDS ORDERED: Povidone Iodine Topical 10% Sol ONE (11:57)
--- NOTE | 2019-01-25 13:28 | CP.PCM.PN ---
Subjective - Date & Time of Evaluation Date of Evaluation: 01/25/19 Time of Evaluation: 13:28 - Subjective Subjective: Podiatry Progress Note: Dr. Martino Patient seen and evaluated at bedside this morning with Dr. Martino. Patient is POD#2 left hallux bone biopsy. Patient resting comfortably and in NAD. No acute events overnight. Patient denies any pain to the left lower extremity and offers no new pedal complaints at this time. Patient's present at bedside. Denies nausea/vomiting/fever/shortness of breath/chest pain. Objective - Vital Signs/Intake and Output Vital Signs (last 24 hours): Temp Pulse Resp BP Pulse Ox 97.5 F L 93 H 20 139/77 97 01/25/19 08:25 01/25/19 08:56 01/25/19 08:25 01/25/19 08:56 01/25/19 08:25 - Medications Medications: Current Medications Acetaminophen (Tylenol 325mg Tab) 650 mg PO Q6 PRN PRN Reason: Pain, Mild (1-3) Last Admin: 01/24/19 21:11 Dose: 650 mg Aspirin (Ecotrin) 81 mg PO DAILY [facility] Last Admin: 01/25/19 08:55 Dose: 81 mg Atorvastatin Calcium (Lipitor) 20 mg PO DAILY [facility] Last Admin: 01/25/19 08:55 Dose: 20 mg Glyburide (Micronase) 5 mg PO BID [facility] Last Admin: 01/25/19 08:56 Dose: 5 mg Home Med (Tadalafil [Cialis]) 5 mg PO DAILY [facility] Vancomycin HCl 1 gm/ Sodium (Chloride) 250 mls @ 166.667 mls/hr IVPB Q12 [facility]; Protocol Last Admin: 01/25/19 10:03 Dose: 166.667 mls/hr Aztreonam 1 gm/ Sodium (Chloride) 100 mls @ 100 mls/hr IVPB Q12 [facility]; Protocol Last Admin: 01/25/19 08:54 Dose: 100 mls/hr Insulin Human Regular (Humulin R) 0 units SC ACHS [facility]; Protocol Last Admin: 01/25/19 12:22 Dose: 2 units Lisinopril (Zestril) 20 mg PO DAILY [facility] Last Admin: 01/25/19 08:56 Dose: 20 mg Metformin HCl (Glucophage) 1,000 mg PO BIDWM [facility] Last Admin: 01/25/19 08:55 Dose: 1,000 mg Sglpx-5-Fdzp Ethyl Esters (Lovaza) 2 gm PO BID [facility] Last Admin: 01/25/19 08:55 Dose: 2 gm Oxycodone/Acetaminophen (Percocet 5/325 Mg Tab) 1 tab PO Q6 PRN PRN Reason: Pain, moderate (4-7) Stop: 01/26/19 14:31 Oxycodone/Acetaminophen (Percocet 5/325 Mg Tab) 2 tab PO Q6 PRN PRN Reason: Pain, severe (8-10) Stop: 01/26/19 14:31 Pregabalin (Lyrica) 50 mg PO TID [facility] Last Admin: 01/25/19 12:22 Dose: 50 mg Terazosin HCl (Hytrin) 1 mg PO DAILY@2100 [facility] Last Admin: 01/24/19 21:02 Dose: 1 mg - Labs Labs: 01/24/19 08:10 01/24/19 08:10 PT 12.1 Seconds (9.8-13.1) 01/22/19 22:45 INR 1.1 01/22/19 22:45 APTT 36.6 Seconds (25.6-37.1) 01/22/19 22:45 - Constitutional Appears: Non-toxic, No Acute Distress - Head Exam Head Exam: ATRAUMATIC, NORMOCEPHALIC - Eye Exam Eye Exam: Normal appearance Pupil Exam: NORMAL ACCOMODATION - Extremities Exam Additional comments: Left Lower Extremity Exam VASC: DP and PT 1/4 palpable, CFT less than 3 seconds X 5, TG warm to warm within normal limits, mild edema noted to the left hallux ORTHO: No pain upon palpation of the left hallux NEURO: Gross sensation intact, protective sensation absent DERM: Surgical site appreciated to the dorsal aspect of the left hallux, skin edges well coapted, sutures intact, no evidence of purulence, drainage or erythema at this time. No clinical signs of infection appreciated - Neurological Exam Neurological Exam: Alert, Awake, Oriented x3 - Psychiatric Exam Psychiatric exam: Normal Affect, Normal Mood - Skin Skin Exam: Warm Assessment and Plan - Assessment and Plan (Free Text) Assessment: 58 year old male POD#2 left hallux distal phalanx bone biopsy Plan: Patient seen and evaluated, with attending Dr. Martino ID consult, reccs appreciated Continue IV abx L hallux wound cultures; no growth, preliminary Blood culture; no growth after 48 hrs Local wound care to L lower extremity: betadine, DSD Bone biopsy results pending Vasc consult, reccs appreciated WBAT with CAM boot to L lower extremity Will continue to follow
--- NOTE | 2019-01-25 19:14 | CP.PCM.PN ---
Subjective - Date & Time of Evaluation Date of Evaluation: 01/25/19 Time of Evaluation: 19:12 - Subjective Subjective: I D NOTE AWAITNG LABS UPON CONTINUED EVALUATION FEEL THAT WE NEED EXTENTED IV ANTIBIOTIC RX Objective - Vital Signs/Intake and Output Vital Signs (last 24 hours): Temp Pulse Resp BP Pulse Ox 97.7 F 81 20 120/74 96 01/25/19 16:14 01/25/19 16:14 01/25/19 16:14 01/25/19 16:14 01/25/19 16:14 - Medications Medications: Current Medications Acetaminophen (Tylenol 325mg Tab) 650 mg PO Q6 PRN PRN Reason: Pain, Mild (1-3) Last Admin: 01/24/19 21:11 Dose: 650 mg Aspirin (Ecotrin) 81 mg PO DAILY [facility] Last Admin: 01/25/19 08:55 Dose: 81 mg Atorvastatin Calcium (Lipitor) 20 mg PO DAILY [facility] Last Admin: 01/25/19 08:55 Dose: 20 mg Glyburide (Micronase) 5 mg PO BID [facility] Last Admin: 01/25/19 17:43 Dose: 5 mg Home Med (Tadalafil [Cialis]) 5 mg PO DAILY [facility] Vancomycin HCl 1 gm/ Sodium (Chloride) 250 mls @ 166.667 mls/hr IVPB Q12 [facility]; Protocol Last Admin: 01/25/19 10:03 Dose: 166.667 mls/hr Aztreonam 1 gm/ Sodium (Chloride) 100 mls @ 100 mls/hr IVPB Q12 [facility]; Protocol Last Admin: 01/25/19 08:54 Dose: 100 mls/hr Insulin Human Regular (Humulin R) 0 units SC ACHS [facility]; Protocol Last Admin: 01/25/19 16:35 Dose: Not Given Lisinopril (Zestril) 20 mg PO DAILY [facility] Last Admin: 01/25/19 08:56 Dose: 20 mg Metformin HCl (Glucophage) 1,000 mg PO BIDWM [facility] Last Admin: 01/25/19 17:43 Dose: 1,000 mg Mjrmx-1-Ohej Ethyl Esters (Lovaza) 2 gm PO BID [facility] Last Admin: 01/25/19 17:43 Dose: 2 gm Oxycodone/Acetaminophen (Percocet 5/325 Mg Tab) 1 tab PO Q6 PRN PRN Reason: Pain, moderate (4-7) Stop: 01/26/19 14:31 Oxycodone/Acetaminophen (Percocet 5/325 Mg Tab) 2 tab PO Q6 PRN PRN Reason: Pain, severe (8-10) Stop: 01/26/19 14:31 Pregabalin (Lyrica) 50 mg PO TID [facility] Last Admin: 01/25/19 17:43 Dose: 50 mg Terazosin HCl (Hytrin) 1 mg PO DAILY@2100 [facility] Last Admin: 01/24/19 21:02 Dose: 1 mg - Labs Labs: 01/24/19 08:10 01/24/19 08:10 PT 12.1 Seconds (9.8-13.1) 01/22/19 22:45 INR 1.1 01/22/19 22:45 APTT 36.6 Seconds (25.6-37.1) 01/22/19 22:45
[2019-01-26] MEDS: Omega-3-Acid Ethyl Esters 1 GM Cap PO SCH ×2 (09:10→17:01)
[2019-01-26] MEDS: Aztreonam 1 GM in Sodium Chloride 0.9% 100 ML IVPB SCH ×2 (09:16→20:43)
--- NOTE | 2019-01-26 10:36 | CP.PCM.PN ---
Subjective - Date & Time of Evaluation Date of Evaluation: 01/26/19 Time of Evaluation: 10:37 - Subjective Subjective: DENIES FOOT PAIN OOB TO CHAIR Objective - Vital Signs/Intake and Output Vital Signs (last 24 hours): Temp Pulse Resp BP Pulse Ox 98.0 F 78 19 113/66 97 01/26/19 08:15 01/26/19 08:15 01/26/19 08:15 01/26/19 09:10 01/26/19 08:15 - Medications Medications: Current Medications Acetaminophen (Tylenol 325mg Tab) 650 mg PO Q6 PRN PRN Reason: Pain, Mild (1-3) Last Admin: 01/25/19 21:12 Dose: 650 mg Aspirin (Ecotrin) 81 mg PO DAILY [facility] Last Admin: 01/26/19 09:10 Dose: 81 mg Atorvastatin Calcium (Lipitor) 20 mg PO DAILY [facility] Last Admin: 01/26/19 09:10 Dose: 20 mg Glyburide (Micronase) 5 mg PO BID [facility] Last Admin: 01/26/19 09:11 Dose: 5 mg Home Med (Tadalafil [Cialis]) 5 mg PO DAILY [facility] Aztreonam 1 gm/ Sodium (Chloride) 100 mls @ 100 mls/hr IVPB Q12 [facility]; Protocol Last Admin: 01/26/19 09:16 Dose: 100 mls/hr Insulin Human Regular (Humulin R) 0 units SC ACHS [facility]; Protocol Last Admin: 01/25/19 22:00 Dose: Not Given Lisinopril (Zestril) 20 mg PO DAILY [facility] Last Admin: 01/26/19 09:10 Dose: 20 mg Metformin HCl (Glucophage) 1,000 mg PO BIDWM [facility] Last Admin: 01/26/19 09:10 Dose: 1,000 mg Nhpre-7-Vmrf Ethyl Esters (Lovaza) 2 gm PO BID [facility] Last Admin: 01/26/19 09:10 Dose: 2 gm Oxycodone/Acetaminophen (Percocet 5/325 Mg Tab) 1 tab PO Q6 PRN PRN Reason: Pain, moderate (4-7) Stop: 01/26/19 14:31 Oxycodone/Acetaminophen (Percocet 5/325 Mg Tab) 2 tab PO Q6 PRN PRN Reason: Pain, severe (8-10) Stop: 01/26/19 14:31 Pregabalin (Lyrica) 50 mg PO TID [facility] Last Admin: 01/26/19 09:16 Dose: 50 mg Terazosin HCl (Hytrin) 1 mg PO DAILY@2100 [facility] Last Admin: 01/25/19 21:03 Dose: 1 mg - Labs Labs: 01/24/19 08:10 01/24/19 08:10 PT 12.1 Seconds (9.8-13.1) 01/22/19 22:45 INR 1.1 01/22/19 22:45 APTT 36.6 Seconds (25.6-37.1) 01/22/19 22:45 - Constitutional Appears: No Acute Distress - Head Exam Head Exam: ATRAUMATIC, NORMAL INSPECTION, NORMOCEPHALIC - Eye Exam Eye Exam: EOMI, Normal appearance, PERRL Pupil Exam: NORMAL ACCOMODATION, PERRL - ENT Exam ENT Exam: Mucous Membranes Moist, Normal Exam - Neck Exam Neck Exam: Full ROM, Normal Inspection. absent: Lymphadenopathy - Respiratory Exam Respiratory Exam: Clear to Ausculation Bilateral, NORMAL BREATHING PATTERN - Cardiovascular Exam Cardiovascular Exam: REGULAR RHYTHM, +S1, +S2. absent: Murmur - GI/Abdominal Exam GI & Abdominal Exam: Soft, Normal Bowel Sounds. absent: Tenderness - Rectal Exam Rectal Exam: NORMAL INSPECTION - Extremities Exam Extremities Exam: Full ROM, Normal Capillary Refill. absent: Joint Swelling, Pedal Edema Additional comments: IMPROVEMENT OF REDNESS AND SWELLING L GREAT TOE - Back Exam Back Exam: NORMAL INSPECTION - Neurological Exam Neurological Exam: Alert, Awake, CN II-XII Intact, Oriented x3 - Psychiatric Exam Psychiatric exam: Normal Affect, Normal Mood - Skin Skin Exam: Dry, Intact, Normal Color, Warm Assessment and Plan - Assessment and Plan (Free Text) Assessment: OSTEOPMYELITIS OF L GREAT TOE HTN DM Plan: FOR PICC LINE IN AM WILL PROBABLY D/C WITH IV ANTIBIOTICS X 6 WEEKS
[2019-01-26] MEDS: Insulin Regular 100 units/ml SC SCH ×4 (12:04→21:58)
--- NOTE | 2019-01-26 13:19 | CP.PCM.PN ---
Subjective - Date & Time of Evaluation Date of Evaluation: 01/26/19 Time of Evaluation: 13:17 - Subjective Subjective: Podiatry Progress Note: Dr. Martino Patient seen and evaluated at bedside this AM, patient resting comfortably in bedside chair. Patient is POD#3 left hallux bone biopsy to r/o OM. No acute events overnight. Patient's present at bedside. Denies nausea/vomiting/fever/shortness of breath/chest pain. Objective - Vital Signs/Intake and Output Vital Signs (last 24 hours): Temp Pulse Resp BP Pulse Ox 98.0 F 78 19 113/66 97 01/26/19 08:15 01/26/19 08:15 01/26/19 08:15 01/26/19 09:10 01/26/19 08:15 - Medications Medications: Current Medications Acetaminophen (Tylenol 325mg Tab) 650 mg PO Q6 PRN PRN Reason: Pain, Mild (1-3) Last Admin: 01/25/19 21:12 Dose: 650 mg Aspirin (Ecotrin) 81 mg PO DAILY [facility] Last Admin: 01/26/19 09:10 Dose: 81 mg Atorvastatin Calcium (Lipitor) 20 mg PO DAILY [facility] Last Admin: 01/26/19 09:10 Dose: 20 mg Glyburide (Micronase) 5 mg PO BID [facility] Last Admin: 01/26/19 09:11 Dose: 5 mg Home Med (Tadalafil [Cialis]) 5 mg PO DAILY [facility] Aztreonam 1 gm/ Sodium (Chloride) 100 mls @ 100 mls/hr IVPB Q12 [facility]; Protocol Last Admin: 01/26/19 09:16 Dose: 100 mls/hr Insulin Human Regular (Humulin R) 0 units SC ACHS [facility]; Protocol Last Admin: 01/26/19 12:08 Dose: 2 units Lisinopril (Zestril) 20 mg PO DAILY [facility] Last Admin: 01/26/19 09:10 Dose: 20 mg Metformin HCl (Glucophage) 1,000 mg PO BIDWM [facility] Last Admin: 01/26/19 09:10 Dose: 1,000 mg Bhtyv-1-Vufw Ethyl Esters (Lovaza) 2 gm PO BID [facility] Last Admin: 01/26/19 09:10 Dose: 2 gm Oxycodone/Acetaminophen (Percocet 5/325 Mg Tab) 1 tab PO Q6 PRN PRN Reason: Pain, moderate (4-7) Stop: 01/26/19 14:31 Oxycodone/Acetaminophen (Percocet 5/325 Mg Tab) 2 tab PO Q6 PRN PRN Reason: Pain, severe (8-10) Stop: 01/26/19 14:31 Pregabalin (Lyrica) 50 mg PO TID [facility] Last Admin: 01/26/19 09:16 Dose: 50 mg Terazosin HCl (Hytrin) 1 mg PO DAILY@2100 [facility] Last Admin: 01/25/19 21:03 Dose: 1 mg - Labs Labs: 01/24/19 08:10 01/24/19 08:10 PT 12.1 Seconds (9.8-13.1) 01/22/19 22:45 INR 1.1 01/22/19 22:45 APTT 36.6 Seconds (25.6-37.1) 01/22/19 22:45 - Constitutional Appears: Non-toxic, No Acute Distress - Head Exam Head Exam: ATRAUMATIC, NORMOCEPHALIC - Extremities Exam Additional comments: Left Lower Extremity Exam Vasc: DP and PT 1/4 palpable, CFT less than 3 seconds X 5, TG warm to warm within normal limits, mild edema noted to the left hallux Ortho: No pain upon palpation of the left hallux, MMT 5/5 in all compartments Neruo: Gross sensation intact, protective sensation absent Derm: Surgical site appreciated to the dorsal aspect of the left hallux, skin edges well coapted, sutures intact, no evidence of purulence, drainage or erythema at this time. No clinical signs of infection appreciated - Neurological Exam Neurological Exam: Alert, Awake, Oriented x3 - Psychiatric Exam Psychiatric exam: Normal Affect, Normal Mood - Skin Skin Exam: Warm Assessment and Plan - Assessment and Plan (Free Text) Assessment: 58 year old male POD#3 left hallux distal phalanx bone biopsy; rule out osteomyelitis vs traumatic process Plan: Patient seen and evaluated at bedside Discussed with Dr. Martino in detail ID consult, reccs appreciated Continue IV abx, Aztreonam L hallux wound cultures; no growth, preliminary Blood culture; no growth after 72 hrs Local wound care to L lower extremity: DSD Bone biopsy results pending; review results Sunday Vasc consult, reccs appreciated WBAT with CAM boot to L lower extremity Will continue to follow
[2019-01-27 05:15] LABS: INR 1.1; PROTHROMBIN TIME 12.1 Seconds (9.8-13.1)
[2019-01-27 05:18] LABS: PARTIAL THROMBOPLASTIN TIME 34.9 Seconds (25.6-37.1)
[2019-01-27] MEDS: Insulin Regular 100 units/ml SC SCH ×3 (07:53→17:16)
--- NOTE | 2019-01-27 08:10 | OP ---
PROCEDURE DATE: 01/23/19 SURGEON: Chris Martino DPM ASSISTANTS: Irena Chandra, PGY-1 and Ruel Hunt DPM, PGY-2 TYPE OF ANESTHESIA: IV sedation with local anesthesia. ANESTHESIA ADMINISTERED BY: Micheal Mora MD PREOPERATIVE DIAGNOSES: Open comminuted fracture of distal phalanx of the left hallux and possible bone infection. POSTOPERATIVE DIAGNOSES: Open comminuted fracture of distal phalanx of the left hallux and possible bone infection. PROCEDURE: surgical treatment of open fracture with bone biopsy and wound culture INDICATION: The patient is a 58-year-old male with the above diagnoses. The patient has exhausted all conservative treatments at this time and now requires surgical intervention. The patient signed the consent after careful explanation of risks, benefits, complication and alternatives for the surgical procedure. No guarantees were given nor implied. PREPARATION: The patient was brought into the operating room and placed on the operating room table in a supine position. A time-out was performed for identification of the correct patient and procedure. The patient received a total of 20 mL of 1:1 mixture of 0.5% Marcaine plain and 2% lidocaine plain in a local block type fashion to the left hallux. Once local anesthesia was achieved, the left foot was then prepped and draped in a normal sterile manner. No tourniquet was utilized in this procedure. DESCRIPTION OF PROCEDURE: Attention was directed to the left hallux where the hallucal nail was noted to be absent. At this time using a #15 blade, approximately 2-cm linear longitudinal incision was made dorsal to the distal phalanx of the hallux. Care was taken to identify and check all vital neurovascular structures. All bleeders were cauterized and ligated as necessary. The incision was then deepened through the subcutaneous tissue. The incision was then deepened down to the level of bone. A Jamshidi needle was utilized to resect bone from the distal phalanx at the level of the fracture. Multiple bone biopsies were taken from the fracture site. All bones were passed off the operative field and sent to Pathology. Wound cultures were taken from the bone. The surgical site was then flushed with normal sterile saline. The skin was then reapproximated using 3-0 Prolene in a simple suture manner. Betadine was then applied to the site. Saline-soaked gauze and Kerlix were then utilized to dress the left foot. POSTOPERATIVE CONDITION: The patient tolerated the anesthesia and procedure well and was escorted to the recovery room with vital signs stable and neurovascular status intact to the left foot. The patient is to remain nonweightbearing at this time with use of a CAM boot. The patient will be seen and followed by Podiatry while inpatient at the hospital. The patient will be seen and followed by Dr. Martino once the patient is discharged. IRENA CHANDRA Chris Martino DPM [id number]
[2019-01-27] MEDS: Aztreonam 1 GM in Sodium Chloride 0.9% 100 ML IVPB SCH (08:29)
[2019-01-27] MEDS: Omega-3-Acid Ethyl Esters 1 GM Cap PO SCH ×2 (08:30→17:25)
--- NOTE | 2019-01-27 09:14 | CP.PCM.PN ---
Subjective - Date & Time of Evaluation Date of Evaluation: 01/27/19 Time of Evaluation: 09:04 - Subjective Subjective: Podiatry Progress Note: Dr. Martino 58 y/o patient seen and evaluated at bedside this 3 days S/P left hallux bone biopsy to r/o OM for left hallux oseomyelitis vs traumatic process, patient resting comfortably in bedside chair. No acute events overnight. Patient's present at bedside. He denies nausea/vomiting/fever/shortness of breath/chest pain. Objective - Vital Signs/Intake and Output Vital Signs (last 24 hours): Temp Pulse Resp BP Pulse Ox 97.6 F 93 H 20 118/71 95 01/27/19 08:15 01/27/19 08:30 01/27/19 08:15 01/27/19 08:30 01/27/19 08:15 - Medications Medications: Current Medications Acetaminophen (Tylenol 325mg Tab) 650 mg PO Q6 PRN PRN Reason: Pain, Mild (1-3) Last Admin: 01/25/19 21:12 Dose: 650 mg Aspirin (Ecotrin) 81 mg PO DAILY [facility] Last Admin: 01/27/19 08:32 Dose: Not Given Atorvastatin Calcium (Lipitor) 20 mg PO DAILY [facility] Last Admin: 01/27/19 08:30 Dose: 20 mg Glyburide (Micronase) 5 mg PO BID [facility] Last Admin: 01/27/19 08:30 Dose: 5 mg Home Med (Tadalafil [Cialis]) 5 mg PO DAILY [facility] Aztreonam 1 gm/ Sodium (Chloride) 100 mls @ 100 mls/hr IVPB Q12 [facility]; Protocol Last Admin: 01/27/19 08:29 Dose: 100 mls/hr Vancomycin HCl 1 gm/ Sodium (Chloride) 250 mls @ 166.667 mls/hr IVPB Q12 [facility]; Protocol Last Admin: 01/26/19 21:53 Dose: 166.667 mls/hr Insulin Human Regular (Humulin R) 0 units SC ACHS [facility]; Protocol Last Admin: 01/27/19 07:53 Dose: Not Given Lisinopril (Zestril) 20 mg PO DAILY [facility] Last Admin: 01/27/19 08:30 Dose: 20 mg Metformin HCl (Glucophage) 1,000 mg PO BIDWM [facility] Last Admin: 01/27/19 08:30 Dose: 1,000 mg [id number] Ethyl Esters (Lovaza) 2 gm PO BID [facility] Last Admin: 01/27/19 08:30 Dose: 2 gm Pregabalin (Lyrica) 50 mg PO TID [facility] Last Admin: 01/27/19 08:27 Dose: 50 mg Terazosin HCl (Hytrin) 1 mg PO DAILY@2100 [facility] Last Admin: 01/26/19 20:49 Dose: 1 mg - Labs Labs: 01/24/19 08:10 01/24/19 08:10 PT 12.1 Seconds (9.8-13.1) 01/27/19 04:40 INR 1.1 01/27/19 04:40 APTT 34.9 Seconds (25.6-37.1) 01/27/19 04:40 - Constitutional Appears: Well, Non-toxic, No Acute Distress - Head Exam Head Exam: ATRAUMATIC, NORMOCEPHALIC - Extremities Exam Additional comments: Left Lower Extremity Exam Vasc: DP and PT 1/4 palpable, CFT less than 3 seconds X 5, Temp gradient warm to warm within normal limits, mild non pitting edema noted to the left hallux. Neruo: Gross sensation intact, protective sensation absent. Derm: Surgical site appreciated to the dorsal aspect of the left hallux, skin edges well coapted, sutures intact, no evidence of purulence, drainage or erythema at this time. No clinical signs of infection appreciated. MSK: No pain upon palpation of the left hallux, MMT 5/5 in all compartments. - Neurological Exam Neurological Exam: Alert, Awake, Oriented x3 - Psychiatric Exam Psychiatric exam: Normal Affect, Normal Mood Assessment and Plan - Assessment and Plan (Free Text) Assessment: 58 y/o patient seen and evaluated at bedside this 3 days S/P left hallux bone biopsy to r/o OM for left hallux oseomyelitis vs traumatic process. Plan: Patient seen and evaluated at bedside Discussed with Dr. Martino in detail Charts, labs and vitals reviewed: Afebrile, No leukocytosis. ID consult, reccs appreciated Continue IV abx, Aztreonam L hallux wound cultures; no growth, preliminary Blood culture; no growth after 72 hrs Local wound care to L lower extremity: DSD Bone biopsy results pending; review results Sunday Vasc consult, reccs appreciated WBAT with CAM boot to L lower extremity Patient planned to have a PICC line today. Possible discharge on 6 weeks of IV abx. Podiatry will continue to follow up the patient while in house. Patient to follow up with Dr. Martino upon discharge.
--- NOTE | 2019-01-27 09:40 | CP.PCM.PN ---
Subjective - Date & Time of Evaluation Date of Evaluation: 01/27/19 Time of Evaluation: 09:46 - Subjective Subjective: NO APPARENT DISTRESS AFEBRILE ALL CULTURES--NO GROWTH BONE BX RESULT PENDING Objective - Vital Signs/Intake and Output Vital Signs (last 24 hours): Temp Pulse Resp BP Pulse Ox 97.6 F 93 H 20 118/71 95 01/27/19 08:15 01/27/19 08:30 01/27/19 08:15 01/27/19 08:30 01/27/19 08:15 - Medications Medications: Current Medications Acetaminophen (Tylenol 325mg Tab) 650 mg PO Q6 PRN PRN Reason: Pain, Mild (1-3) Last Admin: 01/25/19 21:12 Dose: 650 mg Aspirin (Ecotrin) 81 mg PO DAILY [facility] Last Admin: 01/27/19 08:32 Dose: Not Given Atorvastatin Calcium (Lipitor) 20 mg PO DAILY [facility] Last Admin: 01/27/19 08:30 Dose: 20 mg Glyburide (Micronase) 5 mg PO BID [facility] Last Admin: 01/27/19 08:30 Dose: 5 mg Home Med (Tadalafil [Cialis]) 5 mg PO DAILY [facility] Aztreonam 1 gm/ Sodium (Chloride) 100 mls @ 100 mls/hr IVPB Q12 [facility]; Protocol Last Admin: 01/27/19 08:29 Dose: 100 mls/hr Vancomycin HCl 1 gm/ Sodium (Chloride) 250 mls @ 166.667 mls/hr IVPB Q12 [facility]; Protocol Last Admin: 01/26/19 21:53 Dose: 166.667 mls/hr Insulin Human Regular (Humulin R) 0 units SC ACHS [facility]; Protocol Last Admin: 01/27/19 07:53 Dose: Not Given Lisinopril (Zestril) 20 mg PO DAILY [facility] Last Admin: 01/27/19 08:30 Dose: 20 mg Metformin HCl (Glucophage) 1,000 mg PO BIDWM [facility] Last Admin: 01/27/19 08:30 Dose: 1,000 mg Ajpjm-8-Flrf Ethyl Esters (Lovaza) 2 gm PO BID [facility] Last Admin: 01/27/19 08:30 Dose: 2 gm Pregabalin (Lyrica) 50 mg PO TID [facility] Last Admin: 01/27/19 08:27 Dose: 50 mg Terazosin HCl (Hytrin) 1 mg PO DAILY@2100 [facility] Last Admin: 01/26/19 20:49 Dose: 1 mg - Labs Labs: 01/24/19 08:10 01/24/19 08:10 PT 12.1 Seconds (9.8-13.1) 01/27/19 04:40 INR 1.1 01/27/19 04:40 APTT 34.9 Seconds (25.6-37.1) 01/27/19 04:40 - Constitutional Appears: No Acute Distress - Head Exam Head Exam: ATRAUMATIC, NORMAL INSPECTION, NORMOCEPHALIC - Eye Exam Eye Exam: EOMI, Normal appearance, PERRL Pupil Exam: NORMAL ACCOMODATION, PERRL - ENT Exam ENT Exam: Mucous Membranes Moist, Normal Exam - Neck Exam Neck Exam: Full ROM, Normal Inspection. absent: Lymphadenopathy - Respiratory Exam Respiratory Exam: Clear to Ausculation Bilateral, NORMAL BREATHING PATTERN - Cardiovascular Exam Cardiovascular Exam: REGULAR RHYTHM, +S1, +S2. absent: Murmur - GI/Abdominal Exam GI & Abdominal Exam: Soft, Normal Bowel Sounds. absent: Tenderness - Rectal Exam Rectal Exam: NORMAL INSPECTION - Exam Bimanual exam: NORMAL BIMANUAL EXAM - Extremities Exam Extremities Exam: Full ROM, Normal Capillary Refill. absent: Joint Swelling, Pedal Edema Additional comments: HEALING - Back Exam Back Exam: NORMAL INSPECTION - Neurological Exam Neurological Exam: Alert, Awake, CN II-XII Intact, Normal Gait, Oriented x3 - Psychiatric Exam Psychiatric exam: Normal Affect, Normal Mood - Skin Skin Exam: Dry, Intact, Normal Color, Warm Assessment and Plan - Assessment and Plan (Free Text) Assessment: OSTEOMYELITIS OF FOOT DM Plan: FOR PICC LINE AND D/C ON IV ANTIBIOTICS TODAY
--- NOTE | 2019-01-27 10:27 | CP.PCM.PN ---
Subjective - Date & Time of Evaluation Date of Evaluation: 01/27/19 Time of Evaluation: 06:30 - Subjective Subjective: Pt seen and examined this morning at bedside. Denies chest pain, SOB, fevers, or throbbing foot pain. Objective - Vital Signs/Intake and Output Vital Signs (last 24 hours): Temp Pulse Resp BP Pulse Ox 97.6 F 93 H 20 118/71 95 01/27/19 08:15 01/27/19 08:30 01/27/19 08:15 01/27/19 08:30 01/27/19 08:15 - Medications Medications: Current Medications Acetaminophen (Tylenol 325mg Tab) 650 mg PO Q6 PRN PRN Reason: Pain, Mild (1-3) Last Admin: 01/25/19 21:12 Dose: 650 mg Aspirin (Ecotrin) 81 mg PO DAILY [facility] Last Admin: 01/27/19 08:32 Dose: Not Given Atorvastatin Calcium (Lipitor) 20 mg PO DAILY [facility] Last Admin: 01/27/19 08:30 Dose: 20 mg Glyburide (Micronase) 5 mg PO BID [facility] Last Admin: 01/27/19 08:30 Dose: 5 mg Home Med (Tadalafil [Cialis]) 5 mg PO DAILY [facility] Aztreonam 1 gm/ Sodium (Chloride) 100 mls @ 100 mls/hr IVPB Q12 [facility]; Protocol Last Admin: 01/27/19 08:29 Dose: 100 mls/hr Vancomycin HCl 1 gm/ Sodium (Chloride) 250 mls @ 166.667 mls/hr IVPB Q12 [facility]; Protocol Last Admin: 01/27/19 09:42 Dose: 166.667 mls/hr Insulin Human Regular (Humulin R) 0 units SC ACHS [facility]; Protocol Last Admin: 01/27/19 07:53 Dose: Not Given Lisinopril (Zestril) 20 mg PO DAILY [facility] Last Admin: 01/27/19 08:30 Dose: 20 mg Metformin HCl (Glucophage) 1,000 mg PO BIDWM [facility] Last Admin: 01/27/19 08:30 Dose: 1,000 mg Wmdhm-2-[id number] Ethyl Esters (Lovaza) 2 gm PO BID [facility] Last Admin: 01/27/19 08:30 Dose: 2 gm Pregabalin (Lyrica) 50 mg PO TID [facility] Last Admin: 01/27/19 08:27 Dose: 50 mg Terazosin HCl (Hytrin) 1 mg PO DAILY@2100 [facility] Last Admin: 01/26/19 20:49 Dose: 1 mg - Labs Labs: 01/24/19 08:10 01/24/19 08:10 PT 12.1 Seconds (9.8-13.1) 01/27/19 04:40 INR 1.1 01/27/19 04:40 APTT 34.9 Seconds (25.6-37.1) 01/27/19 04:40 - Constitutional Appears: No Acute Distress - Head Exam Head Exam: ATRAUMATIC, NORMOCEPHALIC - Eye Exam Eye Exam: EOMI - ENT Exam ENT Exam: Mucous Membranes Moist - Neck Exam Neck Exam: Full ROM - Respiratory Exam Respiratory Exam: Clear to Ausculation Bilateral, NORMAL BREATHING PATTERN. absent: Accessory Muscle Use, Respiratory Distress - Cardiovascular Exam Cardiovascular Exam: RRR, +S1, +S2. absent: Diastolic murmur, Murmur - GI/Abdominal Exam GI & Abdominal Exam: Soft, Normal Bowel Sounds - Extremities Exam Extremities Exam: Full ROM. absent: Calf Tenderness, Pedal Edema Additional comments: foot bandaged, clean dry and intact - Neurological Exam Neurological Exam: Alert, Awake, Oriented x3 - Psychiatric Exam Psychiatric exam: Normal Affect, Normal Mood - Skin Skin Exam: Dry, Normal Color, Warm Assessment and Plan - Assessment and Plan (Free Text) Assessment: 1) PVD (peripheral vascular disease) Status: Acute (2) Toe infection Status: Acute Plan: PVD Toe infection DM HTN HLD HA1C 8.7 EKG 01/22/[address] or T wave abnormalities Medications ASA lipitor lisinopril lovaza terazosin Pt seen, examined, assessment and plan discussed with Dr Jimi Wells PGY1, Internal Medicine Resident
--- NOTE | 2019-01-27 15:10 | CP.PCM.PN ---
Subjective - Date & Time of Evaluation Date of Evaluation: 01/27/19 Time of Evaluation: 15:11 - Subjective Subjective: I D NOTE AFEBRILE WILL HAVE PICC DONE TODAY WILL RECEIVE DAPTOMYCIN DAILY X 4TO 6 WEEKS ALONG c azactam 2GM IVPB DAILY TOE LOOKS GOOD ,DECREASED SWELLING DISCUSSED IN DETAIL c PATIENT & Objective - Vital Signs/Intake and Output Vital Signs (last 24 hours): Temp Pulse Resp BP Pulse Ox 98.2 F 86 18 117/73 95 01/27/19 14:45 01/27/19 14:45 01/27/19 14:45 01/27/19 14:45 01/27/19 08:15 - Medications Medications: Current Medications Acetaminophen (Tylenol 325mg Tab) 650 mg PO Q6 PRN PRN Reason: Pain, Mild (1-3) Last Admin: 01/25/19 21:12 Dose: 650 mg Aspirin (Ecotrin) 81 mg PO DAILY [facility] Last Admin: 01/27/19 08:32 Dose: Not Given Atorvastatin Calcium (Lipitor) 20 mg PO DAILY [facility] Last Admin: 01/27/19 08:30 Dose: 20 mg Glyburide (Micronase) 5 mg PO BID [facility] Last Admin: 01/27/19 08:30 Dose: 5 mg Home Med (Tadalafil [Cialis]) 5 mg PO DAILY [facility] Aztreonam 1 gm/ Sodium (Chloride) 100 mls @ 100 mls/hr IVPB Q12 [facility]; Protocol Last Admin: 01/27/19 08:29 Dose: 100 mls/hr Vancomycin HCl 1 gm/ Sodium (Chloride) 250 mls @ 166.667 mls/hr IVPB Q12 [facility]; Protocol Last Admin: 01/27/19 09:42 Dose: 166.667 mls/hr Daptomycin 580 mg/ Sodium (Chloride) 100 mls @ 100 mls/hr IV Q24H [facility]; Protocol Stop: 02/01/19 12:01 Insulin Human Regular (Humulin R) 0 units SC ACHS [facility]; Protocol Last Admin: 01/27/19 12:10 Dose: 1 units Lisinopril (Zestril) 20 mg PO DAILY [facility] Last Admin: 01/27/19 08:30 Dose: 20 mg Metformin HCl (Glucophage) 1,000 mg PO BIDWM [facility] Last Admin: 01/27/19 08:30 Dose: 1,000 mg Fjiqz-0-Tdjw Ethyl Esters (Lovaza) 2 gm PO BID [facility] Last Admin: 01/27/19 08:30 Dose: 2 gm Pregabalin (Lyrica) 50 mg PO TID [facility] Last Admin: 01/27/19 12:10 Dose: 50 mg Terazosin HCl (Hytrin) 1 mg PO DAILY@2100 [facility] Last Admin: 01/26/19 20:49 Dose: 1 mg - Labs Labs: 01/24/19 08:10 01/24/19 08:10 PT 12.1 Seconds (9.8-13.1) 01/27/19 04:40 INR 1.1 01/27/19 04:40 APTT 34.9 Seconds (25.6-37.1) 01/27/19 04:40
[2019-01-27] MEDS ORDERED: Lidocaine Hydrochloride 5 ML INJ ONE (15:36)
--- NOTE | 2019-01-27 15:50 | PCM.SURG1 ---
Surgeon's Initial Post Op Note - Surgeon's Notes Surgeon: Huma Heavy Cleaner: None Type of Anesthesia: Local Pre-Operative Diagnosis: Infection Operative Findings: Patent left brachial vein Post-Operative Diagnosis: Infection Operation Performed: Left brachial vein 4F 45cm SL PICC placed with the tip in the RA Specimen/Specimens Removed: None Estimated Blood Loss: EBL {In ML}: 1 Date of Surgery/Procedure: 01/27/19 Time of Surgery/Procedure: 15:35
[2019-01-27 16:24] VITALS: BP 150/83; RESP 20; TEMP 97.6; O2SAT 98
--- NOTE | 2019-01-27 22:15 | VASCULAR ---
Procedure: Ultrasound and fluoroscopically placed left upper extremity PICC. Clinical indication: Long-term IV antibiotics. Technique: The relative risks and indications of the procedure were explained to the patient and written informed consent obtained. The patient was placed supine on the angiographic table and the left arm prepped and draped in the usual sterile fashion. A tourniquet was applied to the left axilla. 1% lidocaine was used to anesthetize the skin and soft tissues at the puncture site above the elbow. The left basilic vein was punctured under direct ultrasound guidance with a micropuncture set. A 0.018 guidewire was advanced centrally and used to measure the length to the SVC/RA junction. A 4 Wolof single-lumen PICC size 45 cm long was advanced to the SVC/RA junction under fluoroscopic guidance. The catheter was flushed and secured. The patient tolerated the procedure well. Postprocedure chest radiograph was obtained to ensure location of the catheter tip at the SVC right atrial junction. No postprocedure pneumothorax identified. Impression: Ultrasound and fluoroscopically placed left upper extremity PICC. PICC is ready for use.
[2019-01-28 08:28] VITALS: PULSE 82
--- NOTE | 2019-01-29 09:34 | CP.PCM.DIS ---
Provider - Provider Date of Admission: 01/22/19 22:02 Attending physician: Trevor Titus MD Consults: 01/22/19 22:04 Podiatry Consult Stat Comment: Consulting Provider: Chris Martino Consulting Physician: Chris Martino Reason for Consult: toe infection 01/22/19 23:28 Infectious Disease Consult Stat Comment: Consulting Provider: Tru Nogueira Consulting Physician: Tru Nogueira Reason for Consult: left hallux osteo 01/23/19 14:26 Vascular Surgery Routine Comment: Consulting Provider: Luis Manuel Krause Physician Instructions: Reason For Exam: evaluate LE vascular supply Time Spent in preparation of Discharge (in minutes): 30 Diagnosis - Discharge Diagnosis (1) Osteomyelitis of foot Status: Acute (2) Diabetes 1.5, managed as type 2 Status: Acute (3) Hypertension Status: Acute (4) Toe infection Status: Acute Hospital Course - Lab Results Lab Results: Micro Results 01/22/19 22:25 Blood-Venous Blood Culture - Final NO GROWTH AFTER 5 DAYS 01/22/19 22:45 Blood-Venous Blood Culture - Final NO GROWTH AFTER 5 DAYS 01/22/19 22:45 Blood-Venous Gram Stain - Final TEST NOT PERFORMED 01/23/19 14:30 Foot - Left Gram Stain - Final 01/23/19 14:30 Foot - Left Wound Culture - Final No Growth Most Recent Lab Values WBC 6.3 K/uL (4.8-10.8) 01/24/19 08:10 RBC 4.77 Mil/uL (4.40-5.90) 01/24/19 08:10 Hgb 14.6 g/dL (12.0-18.0) 01/24/19 08:10 Hct 42.8 % (35.0-51.0) 01/24/19 08:10 MCV 89.9 fl (80.0-94.0) 01/24/19 08:10 MCH 30.5 pg (27.0-31.0) 01/24/19 08:10 MCHC 34.0 g/dL (33.0-37.0) 01/24/19 08:10 RDW 12.2 % (11.5-14.5) 01/24/19 08:10 Plt Count 227 K/uL (130-400) 01/24/19 08:10 MPV 7.7 fl (7.2-11.7) 01/22/19 22:45 Neut % (Auto) 65.4 % (50.0-75.0) 01/22/19 22:45 Lymph % (Auto) 22.4 % (20.0-40.0) 01/22/19 22:45 Sebastian % (Auto) 8.2 % (0.0-10.0) 01/22/19 22:45 Eos % (Auto) 3.0 % (0.0-4.0) 01/22/19 22:45 Baso % (Auto) 1.0 % (0.0-2.0) 01/22/19 22:45 Neut # (Auto) 3.8 K/uL (1.8-7.0) 01/22/19 22:45 Lymph # (Auto) 1.3 K/uL (1.0-4.3) 01/22/19 22:45 Sebastian # (Auto) 0.5 K/uL (0.0-0.8) 01/22/19 22:45 Eos # (Auto) 0.2 K/uL (0.0-0.7) 01/22/19 22:45 Baso # (Auto) 0.1 K/uL (0.0-0.2) 01/22/19 22:45 ESR 8 mm/hr (0-20) 01/22/19 22:45 PT 12.1 Seconds (9.8-13.1) 01/27/19 04:40 INR 1.1 01/27/19 04:40 APTT 34.9 Seconds (25.6-37.1) 01/27/19 04:40 pO2 50 mm/Hg (30-55) 01/22/19 22:35 VBG pH 7.40 (7.32-7.43) 01/22/19 22:35 VBG pCO2 39 mmHg (40-60) L 01/22/19 22:35 VBG HCO3 24.2 mmol/L 01/22/19 22:35 VBG Total CO2 25.4 mmol/L (22-28) 01/22/19 22:35 VBG O2 Sat (Calc) 90.3 % (40-65) H 01/22/19 22:35 VBG Base Excess -0.5 mmol/L (0.0-2.0) L 01/22/19 22:35 VBG Potassium 3.7 mmol/L (3.6-5.2) 01/22/19 22:35 Sodium 136.0 mmol/L (132-148) 01/22/19 22:35 Chloride 105.0 mmol/L (98-107) 01/22/19 22:35 Glucose 164 mg/dL (75-110) H 01/22/19 22:35 Lactate 1.6 mmol/L (0.7-2.1) 01/22/19 22:35 FiO2 21.0 % 01/22/19 22:35 Sodium 137 mmol/l (132-148) 01/24/19 08:10 Potassium 4.2 MMOL/L (3.6-5.0) 01/24/19 08:10 Chloride 99 mmol/L (98-107) 01/24/19 08:10 Carbon Dioxide 28 mmol/L (22-30) 01/24/19 08:10 Anion Gap 14 (10-20) 01/24/19 08:10 BUN 25 mg/dl (9-20) H 01/24/19 08:10 Creatinine 1.1 mg/dl (0.8-1.5) 01/24/19 08:10 Est GFR ( Amer) > 60 01/24/19 08:10 Est GFR (Non-Af Amer) > 60 01/24/19 08:10 POC Glucose (mg/dL) 97 mg/dL (65-110) 01/27/19 18:10 Random Glucose 160 mg/dL (75-110) H 01/24/19 08:10 Hemoglobin A1c 8.7 % (4.2-6.5) H 01/23/19 14:17 Calcium 8.9 mg/dL (8.4-10.2) 01/24/19 08:10 Total Bilirubin 0.5 mg/dl (0.2-1.3) 01/22/19 22:45 AST 35 U/L (17-59) 01/22/19 22:45 ALT 70 U/L (21-72) 01/22/19 22:45 Alkaline Phosphatase 48 U/L (38-126) 01/22/19 22:45 Total Creatine Kinase 37 U/L (55-170) L 01/27/19 08:35 C-Reactive Protein < 5.00 mg/L (0.0-9.9) 01/22/19 22:02 Total Protein 7.8 G/DL (6.3-8.2) 01/22/19 22:45 Albumin 4.5 g/dL (3.5-5.0) 01/22/19 22:45 Globulin 3.3 gm/dL (2.2-3.9) 01/22/19 22:45 Albumin/Globulin Ratio 1.4 (1.0-2.1) 01/22/19 22:45 Procalcitonin < 0.05 NG/ML (0.19-0.49) L 01/24/19 08:10 Venous Blood Potassium 3.7 mmol/L (3.6-5.2) 01/22/19 22:35 Vancomycin Trough 7.8 ug/mL (5.0-10.0) 01/24/19 08:10 Blood Type A POSITIVE 01/22/19 22:45 Blood Type Confirm A POSITIVE 01/23/19 06:30 Antibody Screen Negative 01/22/19 22:45 BBK History Checked No verified bt 01/22/19 22:45 - Hospital Course Hospital Course: IMPROVEMENT OF REDNESS AND WARMTH OF GREAT TOE Discharge Exam - Head Exam Head Exam: ATRAUMATIC, NORMOCEPHALIC - Eye Exam Eye Exam: EOMI, Normal appearance, PERRL Pupil Exam: NORMAL ACCOMODATION, PERRL - GI/Abdominal Exam GI & Abdominal Exam: Normal Bowel Sounds - Rectal Exam Rectal Exam: NORMAL INSPECTION - Extremities Exam Additional comments: IMPROVEMENT OF L GREAT TOE INFLAMATION - Neurological Exam Neurological exam: Alert, CN II-XII Intact, Normal Gait, Oriented x3, Reflexes Normal - Psychiatric Exam Psychiatric exam: Normal Affect, Normal Mood - Skin Skin Exam: Dry, Intact, Normal Color, Warm Discharge Plan - Discharge Medications Prescriptions: Aztreonam 2 Gm in NS 100mL [Azactam 2 gm] 2 gm IVPB DAILY #42 ml DAPTOmycin [Cubicin] 580 mg IV DAILY #42 vial - Follow Up Plan Condition: FAIR Disposition: HOME/ ROUTINE Instructions: How to Use Crutches, Bone Biopsy, Peripherally-Inserted Central Catheter (DC), Wound Infection Additional Instructions: follow up with primary MD 1 week sami infusion for antibiotic infusion [phone] non weight bearing to left foot Referrals: Chris Martino MD [Staff Provider] - Tru Nogueira MD [Medical Doctor] -
== END 2019-01-27 19:00 | disposition home or self-care (01) | DRG 478 ==
LOC: H.ER 20:34 → H.ERHOLD 22:02 → H.MEDSURG1 01-23 00:27
PROVIDERS: ADMIT Internal Medicine Pulmonary Disease; ATTEND Internal Medicine Pulmonary Disease
PROC: 0QSR0ZZ Reposition Left Toe Phalanx, Open Approach (ICD-10-PCS; 2019-01-23)
PROC: 0QBR0ZX Excision of Left Toe Phalanx, Open Approach, Diagnostic (ICD-10-PCS; principal; 2019-01-23 13:00)
PROC: 02HV33Z Insertion of Infusion Device into Superior Vena Cava, Percutaneous Approach (ICD-10-PCS; 2019-01-26)
PROC: B518ZZA Fluoroscopy of Superior Vena Cava, Guidance (ICD-10-PCS; 2019-01-26)
PROC: B548ZZA Ultrasonography of Superior Vena Cava, Guidance (ICD-10-PCS; 2019-01-26)
DX: T87.44 Infection of amputation stump, left lower extremity (principal); M86.9 Osteomyelitis, unspecified; L03.032 Cellulitis of left toe; S92.402A Displaced unspecified fracture of left great toe, initial encounter for closed fracture; E11.42 Type 2 diabetes mellitus with diabetic polyneuropathy; E11.51 Type 2 diabetes mellitus with diabetic peripheral angiopathy without gangrene; E11.69 Type 2 diabetes mellitus with other specified complication; E78.00 Pure hypercholesterolemia, unspecified; E78.5 Hyperlipidemia, unspecified; I10 Essential (primary) hypertension; S91.112A Laceration without foreign body of left great toe without damage to nail, initial encounter; S98.112A Complete traumatic amputation of left great toe, initial encounter; W01.0XXA Fall on same level from slipping, tripping and stumbling without subsequent striking against object, initial encounter